=== PATIENT | male | born 1935 | race Caucasian/White ===

== ENCOUNTER 2020-09-22 06:16 | Outpatient (REF) | payer MEDICARE, SELFPAY ==
[2020-09-22 11:29] LABS: Hematocrit 42.8 % (42-52); Hemoglobin 14.1 g/dl (14.0-18.0); Mean Corpuscular HGB Conc 32.9 g/dl (31.0-36.0); Mean Corpuscular Hemoglobin 32.3 pg (27.0-33.0); Mean Corpuscular Volume 98.2 fL (80-98); Platelet Count 171 X10*3/uL (160-400); Red Blood Count 4.36 X10*6/uL (4.60-5.80); Red Cell Distribution Width 13.2 % (11.0-16.0); White Blood Count 5.6 X10*3/uL (4.8-10.8)
[2020-09-22 11:54] LABS: Alanine Aminotransferase 26 U/L (0-40); Albumin Level 4.4 g/dL (3.5-5.0); Alkaline Phosphatase 54 U/L (39-117); Anion Gap 15 (12-20); Aspartate Amino Transferase 34 U/L (5-37); Blood Urea Nitrogen 31 mg/dL (9-16); Calcium 9.2 mg/dL (8.4-10.2); Carbon Dioxide 26 mmol/L (22-29); Chloride 103 mmol/L (96-108); Cholesterol 160 mg/dL; Estimated Glomerular Filt Rate 49; Glucose Fasting 95 mg/dL (60-99); HDL Cholesterol 43 mg/dL; LDL Cholesterol Calculated 89 mg/dl; Potassium 4.6 mmol/l (3.3-5.1); Sodium 139 mmol/L (135-145); Total Protein 7.2 g/dL (6.5-8.0); Triglycerides 140 mg/dL
== END 2020-09-22 06:17 | disposition home or self-care (01) ==
LOC: HO.HMGCLDS 06:16
PROVIDERS: PCP Internal Medicine; Visit Provider Internal Medicine
DX: I13.0 Hypertensive heart and chronic kidney disease with heart failure and stage 1 through stage 4 chronic kidney disease, or unspecified chronic kidney disease (principal); N18.30 Chronic kidney disease, stage 3 unspecified; I50.9 Heart failure, unspecified
CPT/HCPCS: 36415; 80053; 80061; 85027

== ENCOUNTER 2022-01-26 07:45 | Outpatient (REF) | payer MEDICARE, SELFPAY ==
[2022-01-26 11:45] LABS: Hematocrit 43.1 % (42.0-52.0); Mean Corpuscular HGB Conc 32.5 g/dl (31.0-36.0); Mean Corpuscular Hemoglobin 31.7 pg (27.0-33.0); Mean Corpuscular Volume 97.7 fL (80.0-98.0); Platelet Count 190 X10*3/uL (160-400); Red Blood Count 4.41 X10*6/uL (4.60-5.80); Red Cell Distribution Width 12.8 % (11.0-16.0); White Blood Count 5.5 X10*3/uL (4.8-10.8)
[2022-01-26 11:56] LABS: Alanine Aminotransferase 28 U/L (0-40); Albumin Level 4.2 g/dL (3.5-5.0); Alkaline Phosphatase 48 U/L (39-117); Anion Gap 11 (12-20); Aspartate Amino Transferase 31 U/L (5-37); Bilirubin Total 0.7 mg/dL (0.0-1.0); Blood Urea Nitrogen 33 mg/dL (9-16); Calcium 9.7 mg/dL (8.4-10.2); Carbon Dioxide 28 mmol/L (22-29); Chloride 104 mmol/L (96-108); Cholesterol 152 mg/dL; Estimated Glomerular Filt Rate 43; Glucose Fasting 105 mg/dL (60-99); HDL Cholesterol 39 mg/dL; LDL Cholesterol Calculated 82 mg/dl; Potassium 4.8 mmol/L (3.3-5.1); Sodium 138 mmol/L (135-145); Triglycerides 158 mg/dL
== END 2022-01-26 07:46 | disposition home or self-care (01) ==
LOC: HO.HMGCLDS 07:45
PROVIDERS: Visit Provider Internal Medicine
DX: I13.0 Hypertensive heart and chronic kidney disease with heart failure and stage 1 through stage 4 chronic kidney disease, or unspecified chronic kidney disease (principal); N18.30 Chronic kidney disease, stage 3 unspecified; I50.9 Heart failure, unspecified; E78.5 Hyperlipidemia, unspecified; C61 Malignant neoplasm of prostate
CPT/HCPCS: 36415; 80053; 80061; 85027

== ENCOUNTER 2022-08-14 07:57 | Outpatient (REF) | payer MEDICARE, SELFPAY ==
--- NOTE | ~2022-08-14 | CT_ITS ---
EXAMINATION: CT ABDOMEN AND PELVIS WITH CONTRAST CLINICAL INFORMATION: Abdominal wall contusion COMPARISON: None TECHNIQUE: Multidetector volumetric images were obtained from the superior aspect of the liver through the pubic symphysis following administration 85 mL of Omnipaque 350 intravenous contrast. Sagittal and coronal reformatted images were obtained on the technologist's workstation. Oral contrast: Yes This CT examination was performed using dose optimization techniques as appropriate, variously including the following: *Automated exposure control *Adjustment of mA and/or kV according to patient size (this includes techniques or standardized protocols for targeted exams where dose is matched to indication/reason for exam; i.e. extremities or head) *Use of iterative reconstruction technique DLP: 323 mGy-cm FINDINGS: LUNG BASES: The visualized lung bases are clear. There is a large esophageal hernia. LIVER, GALLBLADDER, AND BILIARY TREE: The liver is normal in size, shape, and attenuation. Small subcentimeter low-attenuation liver lesions probably representing cysts. No biliary ductal dilatation is present. The gallbladder is normal in size. There are small gallstones in the gallbladder. PANCREAS: Unremarkable. SPLEEN: Unremarkable. ADRENAL GLANDS: Unremarkable. KIDNEYS AND URETERS: Multiple left renal cysts largest measuring 6 cm. There is a small subcentimeter cyst in the right kidney. No imaging follow-up. Kidneys are unremarkable. BLADDER: Not optimally distended. There is question of bladder wall thickening at the right base of the bladder. GASTROINTESTINAL TRACT: Severe diverticulosis of the colon. No evidence of diverticulitis. Small and large bowel otherwise normal. Appendix not seen. Large esophageal hernia. ABDOMINAL WALL: Small right inguinal hernia containing fat.. No fluid collection or contusion in the abdominal wall appreciated. There is stranding of the subcutaneous fat and asymmetric subcutaneous fluid over the right buttock. LYMPH NODES: Normal. VASCULAR: There is evidence of severe atherosclerotic disease. No aneurysm. PELVIC VISCERA: Prostate gland is not identified. There is abnormal soft tissue seen at the base of the bladder and in the right inferior pelvis/perineum axial image 70 series 3. This has small calcifications. Correlation with clinical history and PSA level is recommended. This abuts the anterior wall of the lower rectum and possible rectal mass should also be considered. OSSEOUS STRUCTURES: Scoliosis and degenerative changes of the spine and hips. CT/CT abdomen pelvis w IV con IMPRESSION: No abdominal wall fluid collection or contusion. Stranding of the subcutaneous fat and subcutaneous fluid over the right buttock questionable for contusion. Diverticulosis. No evidence of diverticulitis. Large esophageal hernia. Question bladder wall thickening of the right bladder base. Abnormal soft tissue in the right lower pelvis and perineum. Prostate gland is not identified. Correlation with PSA level is recommended. This abuts the anterior rectum and possible rectal mass should also be considered. Liver and bilateral renal cysts. Severe atherosclerotic disease. Findings communicated by the [place] work flow spool fixer. Fleischner guidelines were followed.
[2022-08-14 12:12] LABS: Hematocrit 37.9 % (42.0-52.0); Hemoglobin 12.4 g/dl (14.0-18.0); Mean Corpuscular HGB Conc 32.7 g/dl (31.0-36.0); Mean Corpuscular Hemoglobin 31.5 pg (27.0-33.0); Mean Corpuscular Volume 96.2 fL (80.0-98.0); Mean Platelet Volume 11.4 fL (9.4-12.4); Platelet Count 147 X10*3/uL (160-400); Red Blood Count 3.94 X10*6/uL (4.60-5.80); Red Cell Distribution Width 13.4 % (11.0-16.0); White Blood Count 4.7 X10*3/uL (4.8-10.8)
[2022-08-14 12:24] LABS: Anion Gap 13 (12-20); Blood Urea Nitrogen 30 mg/dL (9-16); Calcium 8.9 mg/dL (8.4-10.2); Carbon Dioxide 24 mmol/L (22-29); Chloride 107 mmol/L (96-108); Estimated Glomerular Filt Rate 49; Glucose Random 88 mg/dL (60-115); Sodium 139 mmol/L (135-145)
[2022-08-14] MEDS: iohexoL 350 MG/ML 100 ML INFUS..BTL IV (13:24)
== END 2022-08-14 07:58 | disposition home or self-care (01) ==
LOC: HO.CT 07:57
PROVIDERS: PCP Internal Medicine; Visit Provider Internal Medicine
DX: S30.1XXA Contusion of abdominal wall, initial encounter (principal)
CPT/HCPCS: 36415; 74177; 80048; 85027; Q9967

== ENCOUNTER 2023-07-04 09:22 | Outpatient (REF) | payer MEDICARE, SELFPAY ==
[2023-07-04 11:33] LABS: MANUAL DIFF FLAG NO
[2023-07-04 11:55] LABS: Basophils Percent Auto 0.3 % (0-2); Hematocrit 34.5 % (42.0-52.0); Hemoglobin 11.3 g/dl (14.0-18.0); Imm Gran Abs Auto 0.07 X10*3/uL (0.00-0.03); Imm Gran Pct Auto 1.8 % (0.0-0.4); Lymphocytes Absolute Auto 0.9 X10*3/uL (1.2-4.9); Lymphocytes Percent Auto 23.9 % (20-40); Mean Corpuscular HGB Conc 32.8 g/dl (31.0-36.0); Mean Corpuscular Hemoglobin 30.7 pg (27.0-33.0); Mean Corpuscular Volume 93.8 fL (80.0-98.0); Mean Platelet Volume 10.5 fL (9.4-12.4); Monocytes Absolute Auto 0.5 X10*3/uL (0.1-1.2); Monocytes Percent Auto 11.8 % (2-11); Neutrophils Absolute Auto 2.3 x10*3/uL (2.0-8.3); Neutrophils Percent Auto 61.2 % (45-73); Platelet Count 154 X10*3/uL (160-400); Red Blood Count 3.68 X10*6/uL (4.60-5.80); Red Cell Distribution Width 13.8 % (11.0-16.0); White Blood Count 3.8 X10*3/uL (4.8-10.8)
[2023-07-04 12:27] LABS: Alanine Aminotransferase 130 U/L (0-40); Albumin Level 3.5 g/dL (3.5-5.0); Alkaline Phosphatase 354 U/L (39-117); Anion Gap 12 (12-20); Aspartate Amino Transferase 191 U/L (5-37); Bilirubin Total 0.7 mg/dL (0.0-1.0); Blood Urea Nitrogen 25 mg/dL (9-16); Calcium 8.7 mg/dL (8.4-10.2); Carbon Dioxide 23 mmol/L (22-29); Chloride 106 mmol/L (96-108); Cholesterol 104 mg/dL; Estimated Glomerular Filt Rate 52; Glucose Random 104 mg/dL (60-115); HDL Cholesterol 35 mg/dL; LDL Cholesterol Calculated 56 mg/dl; Potassium 4.5 mmol/L (3.3-5.1); Sodium 136 mmol/L (135-145); Total Protein 6.3 g/dL (6.5-8.0); Triglycerides 68 mg/dL
[2023-07-04 12:33] LABS: TSH reflex Free T4 1.36 uIU/mL (0.32-4.0)
== END 2023-07-04 09:23 | disposition home or self-care (01) ==
LOC: HO.HMGCLDS 09:22
PROVIDERS: PCP Internal Medicine; Visit Provider Internal Medicine
DX: I13.0 Hypertensive heart and chronic kidney disease with heart failure and stage 1 through stage 4 chronic kidney disease, or unspecified chronic kidney disease (principal); N18.30 Chronic kidney disease, stage 3 unspecified; I50.9 Heart failure, unspecified; E78.5 Hyperlipidemia, unspecified
CPT/HCPCS: 36415; 80053; 80061; 84443; 85025

== ENCOUNTER 2023-07-08 08:29 | Outpatient (AMB) | payer MEDICARE, SELFPAY ==
--- NOTE | 2023-07-08 08:58 | MHC.PC.OV ---
Vital Signs 07/08/23 09:02 Height 5 ft 7 in Weight 131 lb BMI 20.5 BP 118/56 L Blood Pressure Location Lt brachial Position Sitting Pulse 71 Pulse Source Pulse Oximeter Pulse Oximetry (%) 98 Oxygen Delivery Method Room Air Intake Visit Reasons: 3 month f/u HTN Intake Note: Pt is here today for 3 months follow up visit. Pt states that he has no appetite. Allergies No Known Allergies Allergy (Verified 07/08/23 09:05) Medication List - Last Reconciled 07/08/23 by Prachi Altman MD alendronate 70 mg PO QWEEK allopurinol 200 mg (2 x 100 mg) PO DAILY cholecalciferol (vitamin D3) (Vitamin D3) 25 mcg PO DAILY ezetimibe 10 mg PO DAILY fish [id number]-vit C-vit E PO flu vacc [id number](65yr up)-PF mL IM metoprolol succinate ER 25 mg PO DAILY rosuvastatin 40 mg PO DAILY Tobacco use date assessed: 04/03/23 Dental Screening Dental Screen Date: 07/08/23 Did you have a dental visit in the last 12 months?: Yes Did you have a dental problem in the last 6 months where you did not have access to dental care?: No Was dental information given to patient?: Patient has dentist HPI 3 month f/u HTN HPI Details Patient presents for the follow-up on hypertension congestive heart failure metastatic prostate CA. patient lost 13 lb since the last visit. He reports decreased appetite but denies abdominal pain nausea vomiting. He has a constipation intermittently but denies hematochezia melena. Patient has been treated by Oncology and Urology for metastatic prostate CA with a rising PSA level. [facility] Medical History CAD (coronary artery disease) CHF (congestive heart failure) CKD (chronic kidney disease) stage 3, GFR 30-59 ml/min Gout HTN (hypertension) Hyperlipidemia Osteoporosis Prostate cancer Family History Father No problems noted. Mother No problems noted. Social History Housing: House Alcohol intake: current Alcohol intake frequency: holidays/special occasions only Patient Tobacco Use Status: Never used Tobacco e-Cigarette/Vaping Use: Never Used Current occupational status: retired Cognitive needs: No Hearing needs: No Vision needs: Yes Questionnaire Thrive Questionnaire Date Thrive assessed: 04/03/23 LOUISE-7 AMB Questionnaire LOUISE-7 Date LOUISE - 7 assessed: 04/03/23 Source: Developed by Drs. Gopal Martines, Mary Jane Sawant, Derian Hill and colleagues, with an educational juanjo from [employer] Review of Systems Const All systems reviewed & are unremarkable except as noted in HPI and below Reports no additional complaints Eyes Reports no additional complaints ENT Reports no additional complaints Card Reports no additional complaints Resp Reports no additional complaints GI Reports no additional complaints Reports no additional complaints Physical exam (Primary Care) Vital Signs: Last Vital Signs Pulse 71 07/08/23 09:02 BP 118/56 L 07/08/23 09:02 Pulse Ox 98 07/08/23 09:02 Oxygen Delivery Method Room Air 07/08/23 09:02 BMI result Body Mass Index 20.5 Tobacco/Smoking Status: Tobacco use Status Tobacco use date assessed 04/03/23 07/08/23 08:58 Patient Tobacco Use Status Never used Tobacco 07/08/23 08:58 e-Cigarette/Vaping Use Never Used 07/08/23 08:58 Thrive Assessment: Date of Thrive Assessment Date Thrive assessed 04/03/23 07/08/23 08:58 Const General: no acute distress HENMT Face and sinus: Yes normal facial exam Neck Neck: Yes supple Resp Effort & Inspection: normal respiratory effort Auscultation: clear to auscultation bilaterally Cardio Rhythm: regular rhythm Heart sounds: S1 normal heart sound present and S2 normal heart sound present GI Inspection: Yes normal to inspection Palpation (GI): Soft to palpation and nontender Percussion: Yes normal to percussion Auscultation: normal bowel sounds Extrem Other: 2+ pitting edema bilaterally Assessment and Plan Assessment & Plan (1) 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 Curry 2004/ Dr. Peacock Code(s): C61 - Malignant neoplasm of prostate Plan: Follow-up with urology and oncology (2) CKD (chronic kidney disease) stage 3, GFR 30-59 ml/min: Code(s): N18.30 - Chronic kidney disease, stage 3 unspecified (3) Anemia: Code(s): D64.9 - Anemia, unspecified Plan: Check iron studies and B12. Referral to GI if patient has iron deficiency discussed with the patient and his and he is not interested in aggressive pursuing of iron deficiency anemia. Patient is interested in trying iron supplement and recheck blood count in 6 weeks (4) Elevated LFTs: Code(s): R79.89 - Other specified abnormal findings of blood chemistry Plan: CT of the abdomen pelvis in November showed questionable small lesions on the liver abdominal ultrasound will be obtained to evaluate for any liver lesions question metastatic disease from prostate CA Orders: Orders IRON PROFILE Today D64.9 - Anemia, unspecified Vitamin B12 Today D64.9 - Anemia, unspecified US abdomen limited Today C61 - Malignant neoplasm of prostate, D64.9 - Anemia, unspecified, R79.89 - Other specified abnormal findings of blood chemistry Medications: Changed From metoprolol succinate ER 50 mg PO BID 180 tabs 3RF To metoprolol succinate ER 25 mg PO DAILY Coding Level of Care Code Est Pt Level 4 (17598) Diagnoses Prostate cancer C61 CKD (chronic kidney disease) stage 3, GFR 30-59 ml/min N18.30 Anemia D64.9 Elevated LFTs R79.89
[2023-07-08 09:02] VITALS: BP 118/56; PULSE 71; O2SAT 98; BMI 20.5
== END 2023-07-08 10:54 | disposition home or self-care (01) ==
PROVIDERS: Visit Provider Internal Medicine
DX: C61 Malignant neoplasm of prostate (principal); N18.30 Chronic kidney disease, stage 3 unspecified; D64.9 Anemia, unspecified; R79.89 Other specified abnormal findings of blood chemistry
CPT/HCPCS: 99214

== ENCOUNTER 2023-07-08 09:45 | Outpatient (REF) | payer MEDICARE, SELFPAY ==
[2023-07-08 13:12] LABS: Iron 97 mcg/dL (45-160); Percent Iron Saturation 43 % (15-50); Total Iron Binding Capacity 223 mcg/dL (228-428); Unsaturated Iron Binding 126 ug/dL; Uric Acid 2.5 mg/dL (3.4-7.0)
[2023-07-08 13:23] LABS: Vitamin B12 1104 pg/mL (200-900)
== END 2023-07-08 09:46 | disposition home or self-care (01) ==
LOC: HO.HMGCLDS 09:45
PROVIDERS: PCP Internal Medicine; Visit Provider Internal Medicine
DX: I12.9 Hypertensive chronic kidney disease with stage 1 through stage 4 chronic kidney disease, or unspecified chronic kidney disease (principal); N18.30 Chronic kidney disease, stage 3 unspecified; D64.9 Anemia, unspecified; E78.5 Hyperlipidemia, unspecified
CPT/HCPCS: 36415; 82607; 83540; 84550

== ENCOUNTER 2023-07-22 08:49 | Outpatient (REF) | payer MEDICARE, SELFPAY ==
--- NOTE | ~2023-07-22 | US_ITS ---
EXAMINATION: US ABDOMEN LIMITED CLINICAL INFORMATION: Malignant neoplasm of prostate, elevated LFTs. COMPARISON: CT abdomen and pelvis with contrast 08/14/2022. TECHNIQUE: Real-time imaging of the right upper quadrant abdominal viscera. Technically difficult study secondary to body habitus. FINDINGS: PANCREAS: Limited visualization of pancreatic tail and head. Imaged portion of pancreatic body is unremarkable. LIVER: Unremarkable. GALLBLADDER: Multiple tiny stones versus sludge within the gallbladder. No gallbladder wall thickening. Gallbladder is distended. COMMON BILE DUCT: Normal in caliber measuring 0.3 cm in diameter. Limited visualization. RIGHT KIDNEY: No hydronephrosis. No renal calculi. Renal cortical thickness is normal. Limited visualization. The kidney measures 10.0 cm in maximum dimension. FREE FLUID: None. US/US abdomen limited IMPRESSION: Multiple tiny stones versus sludge within the gallbladder. No gallbladder wall thickening. Gallbladder is distended.
== END 2023-07-22 08:50 | disposition home or self-care (01) ==
LOC: HO.HMGCX 08:49
PROVIDERS: PCP Internal Medicine; Visit Provider Internal Medicine
DX: C61 Malignant neoplasm of prostate (principal); D64.9 Anemia, unspecified; R79.89 Other specified abnormal findings of blood chemistry
CPT/HCPCS: 76705

== ENCOUNTER 2023-09-18 14:25 | Outpatient (REF) | payer MEDICARE, SELFPAY ==
[2023-09-18 16:13] LABS: Alanine Aminotransferase 36 U/L (0-40); Albumin Level 3.6 g/dL (3.5-5.0); Alkaline Phosphatase 569 U/L (39-117); Aspartate Amino Transferase 76 U/L (5-37); Bilirubin Direct 0.3 mg/dL (0.0-0.5); Bilirubin Total 0.5 mg/dL (0.0-1.0); Gamma Glutamyl Transpeptidase 59 U/L (11-51)
[2023-09-19 04:29] LABS: HBS Num1 0.22 mIU/mL (0-7.99); HBc Num1 0.16 S/CO (0.00-0.79); HBsAGNum1 0.34 S/CO (0.00-0.99); Hepatitis B Core Antibody Nonreactive (Nonreactive); Hepatitis B Surface Antigen Negative (Negative); ~HepC Num1 0.11 S/CO (0.00-0.79); ~Hepatitis B Surface Antibody NONREACTIVE (Nonreactive); ~Hepatitis C Antibody Nonreactive (Nonreactive)
[2023-09-19 04:47] LABS: Hepatitis A Antibody IgG REACTIVE (Nonreactive); ~Hepatitis A Antibody IgG 10.26 S/CO (0.00-0.99)
[2023-09-27 21:08] LABS: Alk.Phos Iso. Macrohepatic 0 % (<=0); Alk.Phos Isoenzymes Bone 77 % (28-66); Alk.Phos Isoenzymes Intest 0 % (1-24); Alk.Phos Isoenzymes Liver 23 % (25-69); Alk.Phos Isoenzymes Placental 0 % (<=0); Alk.Phos Isoenzymes Total 530 U/L (35-144)
== END 2023-09-18 14:26 | disposition home or self-care (01) ==
LOC: HO.LAB 14:25
PROVIDERS: PCP Internal Medicine; Visit Provider Internal Medicine
DX: R79.89 Other specified abnormal findings of blood chemistry (principal); R93.5 Abnormal findings on diagnostic imaging of other abdominal regions, including retroperitoneum; R63.0 Anorexia; C61 Malignant neoplasm of prostate; Z11.59 Encounter for screening for other viral diseases; Z72.89 Other problems related to lifestyle
CPT/HCPCS: 36415; 80076; 82977; 84080; 86704; 86706; 86708; 86803; 87340; 99202

== ENCOUNTER 2023-09-18 14:25 | Outpatient (AMB) | payer MEDICARE, SELFPAY ==
--- NOTE | 2023-09-18 14:29 | MHC.OFFVIS ---
Intake Vital Signs 09/18/23 14:33 Height 5 ft 4 in Weight 121 lb 4.068 oz BMI 20.8 BP 113/57 L Blood Pressure Location Lt brachial Position Sitting Pulse 68 Intake Visit Reasons: other abdominal regions, including retroperitoneum Intake Note: Josep presents in the office as a new patient. CC: Dr Altman had an US of chest done and they seen sludge and stones in the gall bladder so he was sent here. Does not hae an appetite and not sure what that is from. He has lost 20 lbs since March. Allergies No Known Allergies Allergy (Verified 09/24/23 10:16) HPI HPI Comments History of Present Illness Details 88 y.o M with metastatic prostate ca who is here for loss of appetite and elevated LFTs. Pt reports he had progressive decline in his appetite and energy levels since March of this year. Reports almost 20 lbs weight loss since then. No abd pain, N,V. Only GI issue is intermittent constipation x 1 month which resolves with PRN castor oil. No blood in stool. Does take NSAIDs, uses them at least 4-5 times for generalised aches and pains. Pt's previous colo was in 2007 - Dr Verduzco. No polyps. Since pt was 74, no repeat recommended. Initial work up included LFTs which were noted to be up x5UNL for transaminases and x2 UNL for ALP with normal bili. This prompted an US Abd which showed gallstones with GB distention but no wall thickening or pericholecystic fluid. In terms of prostate ca, metastatic. Follows with Dr Charline Crespo at [facility]. 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 Has tried multiple therapies most recently Xtandi which was stopped in January 2022 due to disease progression. Currently only on leuprolide treatment Q 6 month (Dr. Peacock). At that time it was discussed that may need to consider hospice if patient has functional decline. Next appointment with Onc is coming up in a week. [facility] Medical History (Updated 09/18/23 @ 15:14 by Malina Avilez MD) Hyperlipidemia Osteoporosis CAD (coronary artery disease) Gout Prostate cancer CKD (chronic kidney disease) stage 3, GFR 30-59 ml/min HTN (hypertension) CHF (congestive heart failure) Surgical History (Updated 09/18/23 @ 14:33 by DELFINO Cason) Hx of colonoscopy Family History Father No problems noted. Mother No problems noted. Social History Housing: House Alcohol intake: current Alcohol intake frequency: holidays/special occasions only Patient Tobacco Use Status: Never used Tobacco e-Cigarette/Vaping Use: Never Used Current occupational status: retired Cognitive needs: No Hearing needs: No Vision needs: Yes Review of Systems Const All systems reviewed & are unremarkable except as noted in HPI and below Physical Exam Vital Signs: Last Vital Signs Pulse 68 09/18/23 14:33 BP 113/57 L 09/18/23 14:33 BMI result Body Mass Index 20.8 Gen appear: Elderly frail pale appearing NAD HEENT: nonicteric Chest: CTA Abd: soft, nontender, nondistended Ext: no peripheral edema Neuro: A/Ox3, hard of hearing, uses a cane to walk Psych: interacting appropriately Assessment & Plan Assessment & Plan (1) Elevated LFTs: Code(s): R79.89 - Other specified abnormal findings of blood chemistry (2) Abnormal abdominal ultrasound: Code(s): R93.5 - Abnormal findings on diagnostic imaging of other abdominal regions, including retroperitoneum (3) Prostate cancer: Code(s): C61 - Malignant neoplasm of prostate Plan 1. Loss of appetite, unintentional weight loss: Reviewed with the pt that given underlying advanced tx resistant prostate ca, could very well be sequela of progression of disease and cachexia and anorexia are common signs of advanced malignancy. Other ddx include PUD/gastritis/duodenitis sherri given frequent nsaid use, pill esophagitis sherri given large paraesophageal hernia and alendronate use, symptomatic GB disease. Plan: - Discussed that due to underlying comorbidities, frailty and advanced age at high risk for periprocedural complications and therefore will favor conservative management at this time. - Empiric tx with omeprazole 20 BID x 4 weeks and then once daily x 4 weeks for possible PUD/gastritis/esophagitis - Avoid/minimize NSAID use. - Evaluation of prostate ca progression as per his outpatient Onc. Will obtain records after his visit next week. 2. Elevated LFTs: Again could be due to GB disease, vs DILI vs metastatic disease although no lesions visualised on US. Plan: - Recheck LFTs to ascertain if elevation was transient - Fractionate ALP sherri as known bone mets - Check hep serologies Follow up in 4 weeks with any provider Orders: Orders Liver Panel 09/18/23 R7 - Other specified abnormal findings of blood chemistry Hepatitis A IgG 09/18/23 - Other specified abnormal findings of blood chemistry Hepatitis B Surface Antibody 09/18/23 - Other specified abnormal findings of blood chemistry Hepatitis B Surface Antigen 09/18/23 - Other specified abnormal findings of blood chemistry Gamma Glutamyl Transpeptidase 09/18/23 R7 - Other specified abnormal findings of blood chemistry Hepatitis B Core Antibody 09/18/23 R7. - Other specified abnormal findings of blood chemistry Hepatitis C Antibody 09/18/23 - Other specified abnormal findings of blood chemistry Alkaline Phosphatase Isoenzyme 09/18/23 R7. - Other specified abnormal findings of blood chemistry Medications: New omeprazole 20 mg PO BID 60 caps 1RF 30 days Coding Level of Care Code New Pt Level 4 (05052) Diagnoses Elevated LFTs . Abnormal abdominal ultrasound R93.5 Prostate cancer C61
[2023-09-18 14:33] VITALS: BP 113/57; PULSE 68; BMI 20.8
== END 2023-09-18 15:06 | disposition home or self-care (01) ==
PROVIDERS: PCP Internal Medicine; Visit Provider Nurse Practitioner
DX: R79.89 Other specified abnormal findings of blood chemistry (principal); R93.5 Abnormal findings on diagnostic imaging of other abdominal regions, including retroperitoneum; C61 Malignant neoplasm of prostate
CPT/HCPCS: 99204

== ENCOUNTER 2023-09-24 10:06 | Outpatient (AMB) | payer MEDICARE, SELFPAY ==
[2023-09-24 10:08] VITALS: BP 110/56; PULSE 82; O2SAT 97; BMI 21.3
--- NOTE | 2023-09-24 10:08 | MHC.PC.OV ---
Vital Signs 09/24/23 10:08 Height 5 ft 4 in Weight 124 lb BMI 21.3 BP 110/56 L Blood Pressure Location Rt brachial Position Sitting Pulse 82 Pulse Source Pulse Oximeter Pulse Oximetry (%) 97 Oxygen Delivery Method Room Air Intake Visit Reasons: 2m f/u Intake Note: Pt is here today for 2 months follow up visit. Allergies No Known Allergies Allergy (Verified 09/24/23 10:16) Medication List - Last Reconciled 09/24/23 by Prachi Altman MD alendronate 70 mg PO QWEEK allopurinol 200 mg (2 x 100 mg) PO DAILY cholecalciferol (vitamin D3) (Vitamin D3) 25 mcg PO DAILY ezetimibe 10 mg PO DAILY fish oqs-ewqhj-0-vit C-vit E PO metoprolol succinate ER 25 mg (1/2 x 50 mg) PO DAILY omeprazole 20 mg PO BID rosuvastatin 40 mg PO DAILY Tobacco use date assessed: 09/24/23 Fall risk assessment: No Falls in past year Last assessed Fall Risk: 09/24/23 Dental Screening Dental Screen Date: 09/24/23 Did you have a dental visit in the last 12 months?: Yes Did you have a dental problem in the last 6 months where you did not have access to dental care?: No Was dental information given to patient?: Patient has dentist HPI 2m f/u HPI Details Patient presents for follow up. He is not a candidate for continuing chemotherapy for metastatic prostate CA and follows up with urologist. Patient denies any significant pain but reports poor appetite.He has been eating smaller portions but has been able to maintain his weight. He was seen by GI and started on omeprazole without significant change in patient's appetite. He denies heartburn, abdominal pain hematochezia melena. [facility] Medical History (Updated 09/18/23 @ 15:14 by Malina Avilez MD) Hyperlipidemia Osteoporosis CAD (coronary artery disease) Gout Prostate cancer CKD (chronic kidney disease) stage 3, GFR 30-59 ml/min HTN (hypertension) CHF (congestive heart failure) Surgical History (Updated 09/18/23 @ 14:33 by DELFINO Cason) Hx of colonoscopy Family History Father No problems noted. Mother No problems noted. Social History Housing: House Alcohol intake: current Alcohol intake frequency: holidays/special occasions only Patient Tobacco Use Status: Never used Tobacco e-Cigarette/Vaping Use: Never Used Current occupational status: retired Cognitive needs: No Hearing needs: No Vision needs: Yes Questionnaire Thrive Questionnaire Date Thrive assessed: 04/03/23 LOUISE-7 AMB Questionnaire LOUISE-7 Date LOUISE - 7 assessed: 04/03/23 Source: Developed by Drs. Gopal Martines, Mary Jane Sawant, Derian Hill and colleagues, with an educational juanjo from [employer]. Review of Systems Const All systems reviewed & are unremarkable except as noted in HPI and below Reports no additional complaints Eyes Reports no additional complaints ENT Reports no additional complaints Card Reports no additional complaints Resp Reports no additional complaints GI Reports no additional complaints Reports no additional complaints Physical exam (Primary Care) Vital Signs: Last Vital Signs Pulse 82 09/24/23 10:08 BP 110/56 L 09/24/23 10:08 Pulse Ox 97 09/24/23 10:08 Oxygen Delivery Method Room Air 09/24/23 10:08 BMI result Body Mass Index 21.3 Tobacco/Smoking Status: Tobacco use Status Tobacco use date assessed 09/24/23 09/24/23 10:18 Patient Tobacco Use Status Never used Tobacco 09/24/23 10:08 e-Cigarette/Vaping Use Never Used 09/24/23 10:08 Thrive Assessment: Date of Thrive Assessment Date Thrive assessed 04/03/23 09/24/23 10:08 Const General: no acute distress HENMT Mouth: Normal oral and palatal mucosa present Resp Effort & Inspection: normal respiratory effort Auscultation: clear to auscultation bilaterally Cardio Rhythm: regular rhythm Heart sounds: S1 normal heart sound present and S2 normal heart sound present GI Inspection: Yes normal to inspection Palpation (GI): Soft to palpation Auscultation: normal bowel sounds Assessment and Plan Assessment & Plan (1) Prostate cancer: Code(s): C61 - Malignant neoplasm of prostate Plan: Follows up with Urology and Oncology. (2) CKD (chronic kidney disease) stage 3, GFR 30-59 ml/min: Code(s): N18.30 - Chronic kidney disease, stage 3 unspecified Plan: Avoid NSAIDs and monitor renal function (3) CHF (congestive heart failure): Code(s): I50.9 - Heart failure, unspecified Plan: Continue metoprolol (4) Hyperlipidemia: Code(s): E78.5 - Hyperlipidemia, unspecified Plan: Patient will discontinue Crestor and Zetia because there is no benefit for taking those medications because of advanced metastatic prostate CA Medications: Discontinued rosuvastatin Discontinued Reason: Doctor's Order 40 mg PO DAILY 90 tabs 3RF Coding Level of Care Code Est Pt Level 4 (76630) Diagnoses Prostate cancer C61 CKD (chronic kidney disease) stage 3, GFR 30-59 ml/min N18.30 CHF (congestive heart failure) I50.9 Hyperlipidemia E78.5
== END 2023-09-24 15:07 | disposition home or self-care (01) ==
PROVIDERS: PCP Internal Medicine; Visit Provider Internal Medicine
DX: C61 Malignant neoplasm of prostate (principal); N18.30 Chronic kidney disease, stage 3 unspecified; I50.9 Heart failure, unspecified; E78.5 Hyperlipidemia, unspecified
CPT/HCPCS: 99214

== ENCOUNTER 2023-12-30 12:20 | Outpatient (AMB) | payer MEDICARE, SELFPAY ==
[2023-12-30 12:32] VITALS: BP 110/56; PULSE 52; O2SAT 100; BMI 20.6
--- NOTE | 2023-12-30 12:32 | A.OFFPC_ITS ---
Vital Signs 12/30/23 12:32 Height 5 ft 4 in Weight 120 lb BMI 20.6 BP 110/56 L Blood Pressure Location Lt brachial Position Sitting Pulse 52 Pulse Source Pulse Oximeter Pulse Oximetry (%) 100 Oxygen Delivery Method Room Air Intake Visit Reasons: 3 month fu Intake Note: Pt is here today for 4 months follow up visit. Allergies No Known Allergies Allergy (Verified 12/30/23 12:43) Tobacco use date assessed: 12/30/23 Fall risk assessment: 2 + Falls in past year Last assessed Fall Risk: 12/30/23 Dental Screening Dental Screen Date: 12/30/23 Did you have a dental visit in the last 12 months?: Yes Did you have a dental problem in the last 6 months where you did not have access to dental care?: No Was dental information given to patient?: Patient has dentist HPI 3 month fu HPI Details Patient presents for the follow-up. He complains of decreased hearing in both ears and a feeling of blocked ears. Patient follows up with Oncology and Neurology for end-stage metastatic prostate CA. [facility] Medical History Hyperlipidemia Osteoporosis CAD (coronary artery disease) Gout Prostate cancer CKD (chronic kidney disease) stage 3, GFR 30-59 ml/min HTN (hypertension) CHF (congestive heart failure) Surgical History Hx of colonoscopy Family History Father No problems noted. Mother No problems noted. Social History Housing: House Alcohol intake: current Alcohol intake frequency: holidays/special occasions only Patient Tobacco Use Status: Never used Tobacco e-Cigarette/Vaping Use: Never Used Current occupational status: retired Cognitive needs: No Hearing needs: No Vision needs: Yes Questionnaire PHQ-9 Over the last 2 weeks, how often have you been bothered by any of the following problems? 1. Little interest or pleasure in doing things: not at all 2. Feeling down, depressed, or hopeless: not at all 4. Feeling tired or having little energy: several days 5. Poor appetite or overeating: not at all 6. Feeling bad about yourself - or that you are a failure or have let yourself or your family down: not at all 7. Trouble concentrating on things, such as reading the newspaper or watching television: not at all 8. Moving or speaking so slowly that other people could have noticed. Or the opposite - being so fidgety or restless that you have been moving around a lot more than usual: not at all 9. Thoughts that you would be better off or of hurting yourself in some way: not at all Depression Screening Interpretation: Negative Depression Screening Done: Yes Source: Developed by Drs. Gopal Martines, Mary Jane Sawant, Derian Hill and colleagues, with an educational juanjo from [employer]. Thrive Questionnaire Date Thrive assessed: 12/30/23 I am a: Patient What is your living situation today?: I have a steady place to live Within the past 12 months, did the food you bought not last and you didn't have the money to get more?: Never true Within the past 12 months, did you worry whether your food would run out before you got money to buy more?: Never true Do you have trouble paying for medicines?: No Do you have trouble getting transportation to medical appointments?: No Do you have trouble paying your heating and electricity bill?: No Do you have trouble taking care of your child, family member or friend?: No Do you have trouble with day-to-day activities such as bathing, preparing meals, shopping, managing finances, etc.?: No Are you currently unemployed and looking for a job?: No Are you interested in more education?: No Please select the resources that you would like help with: None Currently or been in a relationship where the following occur: no concerns reported THRIVE Score: 0 AUDIT C Alcohol Use Questionnaire (AUDIT-C) 1. How often do you have a drink containing alcohol?: Never 3. How often do you have six or more drinks on one occasion?: Never Total Score: 0 LOUISE-7 AMB Questionnaire LOUISE-7 Date LOUISE - 7 assessed: 12/30/23 Feeling nervous, anxious, or on edge: 0 = Not at all Not being able to stop or control worryin = Not at all Worrying too much about different things: 0 = Not at all Trouble relaxin = Not at all Being so restless that it is hard to sit still: 0 = Not at all Becoming easily annoyed or irritable: 0 = Not at all Feeling afraid as if something awful might happen: 0 = Not at all Total LOUISE-7 score (0-4 normal; 5-9 mild; 10-14 moderate; 15-21 severe): 0 Source: Developed by Drs. Gopal Martines, Mary Jane Sawant, Derian Hill and colleagues, with an educational juanjo from [employer]. Review of Systems Const All systems reviewed & are unremarkable except as noted in HPI and below Reports no additional complaints Eyes Reports no additional complaints ENT Reports no additional complaints Card Reports no additional complaints Resp Reports no additional complaints GI Reports no additional complaints Reports no additional complaints Physical exam (Primary Care) Vital Signs: Last Vital Signs Pulse 52 12/30/23 12:32 BP 110/56 L 12/30/23 12:32 Pulse Ox 100 12/30/23 12:32 Oxygen Delivery Method Room Air 12/30/23 12:32 BMI result Body Mass Index 20.6 Tobacco/Smoking Status: Tobacco use Status Tobacco use date assessed 12/30/23 12/30/23 12:49 Patient Tobacco Use Status Never used Tobacco 12/30/23 12:49 e-Cigarette/Vaping Use Never Used 12/30/23 12:34 Depression Screening Interpretation: Negative Thrive Assessment: Date of Thrive Assessment Date Thrive assessed 12/30/23 12/30/23 12:50 Currently or been in a relationship where the following occur: no concerns reported Const General: no acute distress HENMT Head: Yes normal to inspection Ears: hearing grossly normal bilaterally General nose exam: Normal external nose present Eyes General: appearance normal, both eyes and all related structures Resp Effort & Inspection: normal respiratory effort Auscultation: clear to auscultation bilaterally Cardio Rhythm: regular rhythm Heart sounds: S1 normal heart sound present and S2 normal heart sound present GI Inspection: Yes normal to inspection Palpation (GI): Soft to palpation Percussion: Yes normal to percussion Assessment and Plan Assessment & Plan (1) Prostate cancer: Comment: Metastatic follows-up with oncology and urology Code(s): C61 - Malignant neoplasm of prostate (2) CKD (chronic kidney disease) stage 3, GFR 30-59 ml/min: Code(s): N18.30 - Chronic kidney disease, stage 3 unspecified Plan: Avoid NSAIDs monitor renal function, Coding Level of Care Code Est Pt Level 3 (06654) Diagnoses Prostate cancer C61 CKD (chronic kidney disease) stage 3, GFR 30-59 ml/min N18.30
== END 2023-12-30 14:09 | disposition home or self-care (01) ==
PROVIDERS: PCP Internal Medicine; Visit Provider Internal Medicine
DX: C61 Malignant neoplasm of prostate (principal); N18.30 Chronic kidney disease, stage 3 unspecified
CPT/HCPCS: 99213

== ENCOUNTER 2024-01-10 11:54 | Inpatient (IN) | payer MEDICARE, SELFPAY ==
[2024-01-10] VITALS (10 sets, daily range): BP systolic 110–156; BP diastolic 53–70; PULSE 79–89; RESP 16–19; TEMP 36.1–37.3; O2SAT 87–98; BMI 21.1; BMI 20.8
--- NOTE | ~2024-01-10 | XR_ITS ---
EXAMINATION: XR CHEST CLINICAL INFORMATION: Shortness of breath COMPARISON: None available. TECHNIQUE: Frontal view of the chest was obtained. FINDINGS: The cardiac silhouette is slightly enlarged. There are post-CABG changes. Hilar and mediastinal contours are otherwise unremarkable. Loss of the left hemidiaphragm questionable for left lower lobe atelectasis/consolidation and/or small left pleural effusion. Small to moderate right pleural effusion that may be loculated. Difficult to exclude airspace disease or atelectasis at the right lung base and pulmonary nodules. No pneumothorax. Sclerotic disease of the bones. No fracture seen. Median sternotomy wires. XR/XR chest 1V IMPRESSION: Diffuse sclerotic disease of the bones. No fracture seen. Small to moderate right pleural effusion and bibasilar atelectasis/consolidation.
--- NOTE | ~2024-01-10 | CT_ITS ---
EXAMINATION: CT LUMBAR SPINE WITHOUT CONTRAST CLINICAL INFORMATION: History of prostate carcinoma. COMPARISON: CT abdomen and pelvis 08/14/2022. TECHNIQUE: Needleworker images were obtained. CT imaging of the lumbar spine was performed without contrast. Data was reformatted into multiplanar images at the acquisition workstation. This CT examination was performed using dose optimization techniques as appropriate, variously including the following: *Automated exposure control *Adjustment of mA and/or kV according to patient size (this includes techniques or standardized protocols for targeted exams where dose is matched to indication/reason for exam; i.e. extremities or head) *Use of iterative reconstruction technique DLP; 390 mGy-cm FINDINGS: There are mixed sclerotic and lucent changes visualized within all vertebral segments within the [id number] of this examination consistent with widespread osseous metastatic disease in a patient with a clinical history of prostate carcinoma. There is a chronic compression deformity of the L1 vertebral body with impaction of the upper endplate resulting in approximately 25% vertebral height loss anteriorly. No overt retropulsion of posterior cortex at this level. There is spinal scoliosis with a leftward convex curvature centered at L4. Slight right lateral subluxation of L2 on L3 and L3 on L4. Left lateral subluxation of L4 on L5. There is loss of intervertebral disc height with associated sclerotic degenerative endplate changes and hypertrophic disc osteophyte spurring at multiple levels within the lumbar spine. Canal patency is not well assessed on this examination due to inherent limitations of CT without intrathecal contrast. Disc osteophyte spurring in conjunction with facet degenerative change causes mild to moderate neuroforaminal encroachment at multiple levels. Limited visualization of the retroperitoneal anatomy reveals a hydropic gallbladder with the final gland measuring up to 5 cm. Heavily calcified atherosclerotic plaque involves the abdominal aorta and iliac vessels. Layering pleural effusions are partially visualized within the zwveq-pi-[id number] of this examination and there is a slight hiatal hernia. CT/CT lumbar spine wo IV con IMPRESSION: There is evidence of widespread osseous metastatic disease in a patient with a clinical history of prostate carcinoma. There is a chronic compression deformity of the L1 vertebral body with impaction of the upper endplate resulting in approximately 25% vertebral height loss anteriorly. No overt retropulsion of posterior cortex at this level. Canal patency is not well assessed on this examination due to inherent limitations of CT without intrathecal contrast. Disc osteophyte spurring in conjunction with facet degenerative change causes mild to moderate neuroforaminal encroachment at multiple levels.
--- NOTE | ~2024-01-10 | CT_ITS ---
EXAMINATION: CT PELVIS WITHOUT CONTRAST CLINICAL INFORMATION: History of prostate carcinoma, now complains of pain in the right iliac crest COMPARISON: CT scan of abdomen and pelvis on 08/14/2022 TECHNIQUE: Helical scanning was performed with submillimeter collimation through the pelvis. Sagittal and coronal multiplanar 2-D reconstructions were obtained. This CT examination was performed using dose optimization techniques as appropriate, variously including the following: *Automated exposure control *Adjustment of mA and/or kV according to patient size (this includes techniques or standardized protocols for targeted exams where dose is matched to indication/reason for exam; i.e. extremities or head) *Use of iterative reconstruction technique DLP: 173.29 mGy-cm FINDINGS: URINARY BLADDER: Urinary bladder fills normally with urine. No calcified stones could be seen in the bladder. BOWELS: Multiple diverticula are seen in the descending and sigmoid colon without inflammatory changes. Ascending and right transverse colon are mildly distended with feces. Appendix cannot be identified. GENITAL ORGANS: Seminal vesicles and prostate gland are not well visualized. LYMPH NODES: No abnormally enlarged iliac or inguinal lymph nodes are seen. PERITONEUM: No inflammatory changes, ascites or free peritoneal air are found in the pelvis. BONES: No fracture or dislocation. There has been interval development of extensive predominantly sclerotic metastatic tumor infiltration mixed with radiolucent bones producing a moth-eaten pattern in the visualized lumbosacral spine, diffusely in bilateral bony pelvis and proximal femoral shafts. CT/CT pelvis wo IV con IMPRESSION: 1. No acute pelvic fracture or dislocation seen. 2. There has been interval development of extensive sclerotic metastatic tumor infiltration in the visualized lumbosacral spine, bilateral bony pelvis and proximal femoral shafts. 3. Unchanged Sigmoid and descending colon diverticulosis without diverticulitis.
--- NOTE | 2024-01-10 12:13 | ECG_ITS ---
Test Reason : CKD Blood Pressure : / mmHG Vent. Rate : 077 BPM Atrial Rate : 077 BPM P-R Int : 174 ms QRS Dur : 122 ms QT Int : 422 ms P-R-T Axes : 028 -49 021 degrees QTc Int : 477 ms Sinus rhythm with occasional Premature ventricular complexes Left axis deviation Right bundle branch block Septal infarct (cited on or before 09-OCT-2002) Abnormal ECG When compared with ECG of 19-JAN-2014 15:42, Premature ventricular complexes are now Present Questionable change in initial forces of Septal leads Nonspecific T wave abnormality now evident in Anterior leads Referred By: Rena Redmond Electronically Signed By:Gael Burch
--- NOTE | 2024-01-10 12:27 | ED_ITS ---
HPI - Back Pain/Injury General Chief Complaint: Back Pain/Injury Stated Complaint: BACK PAIN PROSTATE CANCER Time Seen by Provider: 01/10/24 11:56 Source: patient Mode of arrival: EMS History of Present Illness HPI Narrative: 88-year-old male with complaints of right iliac/back pain, denies any recent falls, denies any fevers/chills/nausea/vomiting/abdominal pain and states that the pain is been occurring for the past 2 days and states that he has also had increased difficulty walking and has history of prostate cancer. Related Data Home Medications Medication Instructions Recorded Confirmed cholecalciferol (vitamin D3) 25 25 mcg PO DAILY 09/26/20 09/24/23 mcg (1,000 unit) capsule (Vitamin D3) fish vus-ppqek-3-vit C-vit E PO 09/26/20 09/24/23 Allergies Allergy/AdvReac Type Severity Reaction Status Date / Time No Known Allergies Allergy Verified 01/10/24 12:17 Review of Systems 2 Review of Systems: Pertinent positives and negatives as stated in HPI PMFSH Past Medical History Source: nursing notes reviewed Medical History Hyperlipidemia Osteoporosis CAD (coronary artery disease) Gout Prostate cancer CKD (chronic kidney disease) stage 3, GFR 30-59 ml/min HTN (hypertension) CHF (congestive heart failure) Surgical History Hx of colonoscopy Family History Family History Father No problems noted. Mother No problems noted. Social History Social History Housing: House Alcohol intake: current Alcohol intake frequency: holidays/special occasions only Patient Tobacco Use Status: Never used Tobacco e-Cigarette/Vaping Use: Never Used Advance Directives: No Advance Directives Information Provided: No Current occupational status: retired Cognitive needs: No Hearing needs: No Vision needs: Yes Physical Exam 2 Vital Signs: Vital Signs: Last Vital Signs Temp 97.8 F 01/10/24 12:08 Pulse 81 01/10/24 12:08 Resp 16 01/10/24 13:41 BP 118/53 L 01/10/24 13:41 Pulse Ox 93 01/10/24 13:41 O2 Del Method Room Air 01/10/24 13:41 BMI result Body Mass Index 21.1 VITAL SIGNS: Reviewed. GENERAL: Well developed, well nourished, in no acute distress. HEAD: Normocephalic/atraumatic EYES: PERRLA, EOMI EARS: Ext canals without abnormality, TMs non-bulging and non-erythematous NOSE: Nares patent bilateral OROPHARYNX: no oral lesions noted, posterior pharynx clear NECK: Supple, no adenopathy LUNGS: Normal breath sounds. No adventitious sounds or accessory muscle use. SpO2<93> requiring 1 L nasal cannula; CHEST: There is no deformity/crepitus or tenderness on palpation CARDIOVASCULAR: Regular rate and rhythm without noted murmurs ABDOMEN: Soft, non-tender, non-distended with bowel sounds. PELVIS: Tenderness to palpation along the posterior right iliac crest that extends between the L4/L5 musculoskeletal pain as well MUSCULOSKELETAL: No tenderness, deformities, or effusions noted on gross inspection. EXTREMITIES: No cyanosis, clubbing or edema. SKIN: Inspection of the skin reveals no rashes NEUROLOGIC: Alert and oriented x 4. Strength and sensation to light touch were grossly intact x 4. Medications Administered Discontinued Medications Generic Name Dose Route Start Last Admin Trade Name Freq PRN Reason Stop Dose Admin Furosemide 60 mg 01/10/24 13:24 01/10/24 13:38 Furosemide 100 Mg/10 Ml Vial IVPUSH 01/10/24 13:25 60 mg ONCE ONE Administration Protocol Medical Decision Making Medical Decision Making [facility] Narrative: 88-year-old male with history and clinical presentation, DDX: Bone lesion, muscle spasm, acute on chronic back pain, compression fracture, viral illness I reviewed all investigations in patient has a persistent and chronic leukopenia, there is a new normocytic anemia that I suspect is anemia of chronic disease but patient also has CAD and will need to receive blood transfusion for this value, patient also has chronically stable thrombocytopenia. Chemistry indices do not demonstrate an MONIKA but there is a chronically stable AST elevation as well as elevated alkaline phosphatase. I sensitivity troponin is 44.2 with a BNP of 1297 which likely explains patient's observed hypoxia. On review of the EKG there are no acute findings and rhythm appears to be roughly similar to prior EKG from 01/19/2014. However, will repeat high sensitivity troponin. Chest x-ray consistent with CHF, this is likely been exacerbated by patient's underlying anemia. Viral testing is negative for COVID-19/influenza. Dispo at this time is admission for acute CHF exacerbation with associated hypoxia secondary to anemia. 1350: I discussed the case with inpatient hospitalist who accepts admission. 1359: I reviewed the CT scan of the L-spine which is significant for widespread osseous metastatic disease and evidence to suggest L1 compression fracture with loss of height 25% and could be causing the pain across the L1 distribution. Differential Diagnosis Differential Diagnoses: The differential diagnosis associated with the presentation includes Please see the discussion above Admission/Observation Consideration of admission/observation: Escalation of care including admission/observation considered Please see the discussion above Consult Healthcare Provider Management of the patient was discussed with: Hospitalist Please see the discussion above Lab Data MDM Lab Attestation statement: I reviewed the patient's lab results. Please see the discussion above 01/10/24 12:31 01/10/24 12:31 Labs: Lab Results 01/10/24 Range/Units 12:31 WBC 3.8 L (4.8-10.8) X10*3/uL RBC 2.48 L D (4.60-5.80) X10*6/uL Hgb 7.2 L D (14.0-18.0) g/dl Hct 22.4 L D (42.0-52.0) % MCV 90.3 (80.0-98.0) fL MCH 29.0 (27.0-33.0) pg MCHC 32.1 (31.0-36.0) g/dl RDW 18.0 H (11.0-16.0) % Plt Count 152 L (160-400) X10*3/uL MPV 9.8 (9.4-12.4) fL Immature Gran % (Auto) 1.0 H (0.0-0.4) % Neut % (Auto) 72.7 (45-73) % Lymph % (Auto) 15.0 L (20-40) % [place] % (Auto) 10.2 (2-11) % Eos % (Auto) 0.8 (0-4) % Baso % (Auto) 0.3 (0-2) % Lymph # (Auto) 0.6 L (1.2-4.9) X10*3/uL [place] # (Auto) 0.4 (0.1-1.2) X10*3/uL Eos # (Auto) 0.0 (0.0-0.4) X10*3/uL Baso # (Auto) 0.0 (0.0-0.2) X10*3/uL Abs Immat Gran (auto) 0.04 H (0.00-0.03) X10*3/uL Absolute Neuts (auto) 2.8 (2.0-8.3) x10*3/uL Absolute Nucleated RBC 0.000 (0.0-0.012) X10*3/uL Nucleated RBC % (auto) 0.0 (0.0-0.2) /100WBC Sodium 138 (135-145) mmol/L Potassium 4.4 (3.3-5.1) mmol/L Chloride 110 H (96-108) mmol/L Carbon Dioxide 21 L (22-29) mmol/L Anion Gap 11 L (12-20) BUN 38 H (9-16) mg/dL Creatinine 0.87 (0.5-1.4) mg/dL Estim Creat Clear Calc 44.3 Estimated GFR > 60 Random Glucose 85 (60-115) mg/dL Calcium 8.3 L (8.4-10.2) mg/dL Total Bilirubin 0.5 (0.0-1.0) mg/dL AST 48 H (5-37) U/L ALT 10 (0-40) U/L Alkaline Phosphatase 472 H (39-117) U/L Troponin I High Sens 44.2 H (<3.5-35.0) ng/L B-Natriuretic Peptide 1297 H (<100) pg/mL Total Protein 5.3 L (6.5-8.0) g/dL Albumin 2.8 L (3.5-5.0) g/dL COVID-19 (VALENTINO) Negative (Negative) COVID-19 Clin Com See Note Influenza Type A (DERIAN) Negative (Negative) Influenza Type B (DERIAN) Negative (Negative) Influenza A & B Note See Note Independent Interpretation I performed an independent interpretation of an: EKG Interpretation: Sinus rhythm with occasional PVC, HR-77, no STEMI, DE/QTC is within normal limits, RBBB at baseline. No significant rhythm changes when compared to prior. Radiology Impression Discussion of test interpretation with radiology: I have reviewed the radiologist's reading. Radiologist Impression: Please see the discussion above External Record Review External record reviewed: Outpatient record, Prior outpatient labs and Prior outpatient radiology Chronic Conditions Patient?s care impacted by: Hypertension CHF, prostate cancer Critical Care Time Critical Care Time Critical Care Time: Yes Total Critical Care Time: 90 Attestation: I personally attest to this time spent taking care of the patient. Discharge Plan Discharge Clinical Impression: Anemia, Hypoxia, Acute on chronic congestive heart failure, Bilateral pleural effusion Patient Disposition: Admitted As Inpatient
[2024-01-10 12:40] LABS: MANUAL DIFF FLAG NO
[2024-01-10 12:41] LABS: Basophils Percent Auto 0.3 % (0-2); Eosinophils Percent Auto 0.8 % (0-4); Hematocrit 22.4 % (42.0-52.0); Hemoglobin 7.2 g/dl (14.0-18.0); Imm Gran Abs Auto 0.04 X10*3/uL (0.00-0.03); Lymphocytes Absolute Auto 0.6 X10*3/uL (1.2-4.9); Mean Corpuscular HGB Conc 32.1 g/dl (31.0-36.0); Mean Corpuscular Volume 90.3 fL (80.0-98.0); Mean Platelet Volume 9.8 fL (9.4-12.4); Monocytes Absolute Auto 0.4 X10*3/uL (0.1-1.2); Monocytes Percent Auto 10.2 % (2-11); Neutrophils Absolute Auto 2.8 x10*3/uL (2.0-8.3); Neutrophils Percent Auto 72.7 % (45-73); Platelet Count 152 X10*3/uL (160-400); Red Blood Count 2.48 X10*6/uL (4.60-5.80); White Blood Count 3.8 X10*3/uL (4.8-10.8)
[2024-01-10 12:58] LABS: Alanine Aminotransferase 10 U/L (0-40); Albumin Level 2.8 g/dL (3.5-5.0); Alkaline Phosphatase 472 U/L (39-117); Anion Gap 11 (12-20); Aspartate Amino Transferase 48 U/L (5-37); Bilirubin Total 0.5 mg/dL (0.0-1.0); Blood Urea Nitrogen 38 mg/dL (9-16); COVID-19 Test Negative (Negative); Calcium 8.3 mg/dL (8.4-10.2); Carbon Dioxide 21 mmol/L (22-29); Chloride 110 mmol/L (96-108); Creatinine Clr Calc Pharmacy 44.3; Estimated Glomerular Filt Rate > 60; Glucose Random 85 mg/dL (60-115); IDNOW Serial# 58CA691E; Potassium 4.4 mmol/L (3.3-5.1); Sodium 138 mmol/L (135-145); Total Protein 5.3 g/dL (6.5-8.0)
[2024-01-10 13:00] LABS: B Type Natriuretic Peptide 1297 pg/mL (<100)
[2024-01-10 13:05] LABS: Troponin-I High Sensitivity 44.2 ng/L (<3.5-35.0)
[2024-01-10 13:09] LABS: IDNOW Serial# 6674DD1D; Influenza A Negative (Negative); Influenza B2 Negative (Negative)
[2024-01-10] MEDS: Furosemide 100 MG/10 ML VIAL 60 MG IVPUSH (13:38)
--- NOTE | 2024-01-10 14:49 | PHA.MEDREC ---
Pharmacy Consult ? Medication Reconciliation Pharmacy has completed the medication reconciliation. Patients family, ( and daughter) confirmed that patient in no longer taking any medications. He does have a recent claim history of metoprolol succ er24, alendronate 70mg, allpurinol 100mg, omeprazole 20mg, ezetimbe 10mg and, rosuvastatin 40 mg.
--- NOTE | 2024-01-10 15:09 | PM.IMHP ---
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 ?Pt has hx of osteoporosis and chronic back pain, but pain worsened significantly yesterday to the point where he could no longer tolerate it. Pain associated with movement and feels like someone is hitting him with a ?sledgehammer?. Patient denies any fall or trauma to the area. Denies shortness of breath, but admits he has been getting tired with going up stairs for the past couple of weeks. Family is considering getting a stair lift. Patient also notes that he has been feeling more weak than normal, and notes some increased swelling in his ankles bilaterally. Also has been experiencing some lightheadedness and dizziness. Denies any known active bleeding: No hematemesis, hemoptysis, melena, or hematochezia. Review of patient's Oncology [facility] records indicate known metastasis to lungs and bone, and recommend consideration of palliative radiation if patient develops pain symptoms, or consideration of hospice if he begins to functionally decline. Imaging in the ED demonstrate extensive osseous metastasis, though patient and family seem rather surprised by this development, or at least to the extent of the metastasis. Family states they have a lot to digest and will discuss goals of care. Family denies any known diagnosis of CHF. In the ED pt had mildly elevated BP of 144/61, vitals otherwise WNL. Labs were significant for H&H 7.2/22.4, initial troponin 44.2, BNP 1297, total protein 5.3, albumin 2.8. Labs otherwise WNL or at baseline. Tested negative for COVID, influenza type a and B. CXR showed diffuse sclerotic disease in the bones with no fracture seen, small to moderate right pleural effusion and bibasilar atelectasis/consolidation. Lumbar spine CT showed evidence of widespread osseous metastatic disease with likely chronic compression deformity of L1 vertebral body, and [id number] neuroforaminal encroachment at multiple levels. CT of pelvis found no acute pelvic fracture or dislocation, but did show interval development of extensive sclerotic metastatic tumor infiltration in the visualized lumbosacral spine, bilateral bony pelvis, and proximal femoral shafts. EKG demonstrated showed sinus rhythm with occasional PVCs with left axis deviation and RBBB. Pt was treated with furosemide 60 mg IV. Pt will be admitted to the hospital for treatment and further evaluation of new onset CHF. Review of Systems Review of Systems: Right-sided back pain Lightheadedness, dizziness BETANCOURT, especially going up stairs Increased weakness, fatigue Lower leg edema around ankles bilaterally Chronic occasionally productive cough, at baseline Denies hematemesis, hemoptysis, melena, hematochezia No chest pain/pressure, palpitations Denies shortness of breath [facility] Medical History Hyperlipidemia Osteoporosis CAD (coronary artery disease) Gout Prostate cancer CKD (chronic kidney disease) stage 3, GFR 30-59 ml/min HTN (hypertension) CHF (congestive heart failure) Family History Father No problems noted. Mother No problems noted. Surgical History Hx of colonoscopy Social History Housing: House Alcohol intake: current Alcohol intake frequency: holidays/special occasions only Patient Tobacco Use Status: Never used Tobacco e-Cigarette/Vaping Use: Never Used Advance Directives: No Advance Directives Information Provided: No Current occupational status: retired Cognitive needs: No Hearing needs: No Vision needs: Yes Meds Allergies Allergy/AdvReac Type Severity Reaction Status Date / Time No Known Allergies Allergy Verified 01/10/24 12:17 Home Medications Medication Instructions Recorded Confirmed Last Taken Type No Known Home Meds 01/10/24 01/10/24 Unknown History Physical Exam Vital Signs and Narrative: Vital Signs: Last Vital Signs Temp 97.8 F 01/10/24 12:08 Pulse 81 01/10/24 12:08 Resp 16 01/10/24 13:41 BP 118/53 L 01/10/24 13:41 Pulse Ox 93 01/10/24 13:41 O2 Del Method Room Air 01/10/24 13:41 BMI result Body Mass Index 21.1 Constitutional: Alert, frail-looking. In no acute distress. Mental Status: Oriented to person, place and time. Eyes: Pupils are equal, round, and reactive to light. Ear, Nose, and Throat: Oropharynx clear, mucous membranes moist. Ears and nose without deformities. Trachea midline. Respiratory: Clear to auscultation bilaterally. No wheezing, rales, or rhonchi. Cardiovascular: S1, S2 regular. No murmurs, rubs, or gallops. Gastrointestinal: Abdomen soft, non-tender, non-distended. Normal bowel sounds. Neurologic: Cranial nerves II-XII are grossly intact bilaterally. No focal neurological deficits. Moves all extremities spontaneously. Skin: Warm, dry. Musculoskeletal: No cyanosis or clubbing. Extremities: Trace bilateral pitting edema around ankles. Psychiatric: Normal mood and affect. Results Labs 01/10/24 12:31 01/10/24 12:31 Labs: Laboratory Results - last 24 hr 01/10/24 01/10/24 12:31 13:59 MCV 90.3 MCH 29.0 MCHC 32.1 RDW 18.0 H Plt Count 152 L MPV 9.8 Immature Gran % (Auto) 1.0 H Neut % (Auto) 72.7 Lymph % (Auto) 15.0 L [place] % (Auto) 10.2 Eos % (Auto) 0.8 Baso % (Auto) 0.3 Lymph # (Auto) 0.6 L [place] # (Auto) 0.4 Eos # (Auto) 0.0 Baso # (Auto) 0.0 Abs Immat Gran (auto) 0.04 H Absolute Neuts (auto) 2.8 Absolute Nucleated RBC 0.000 Nucleated RBC % (auto) 0.0 Anion Gap 11 L Estim Creat Clear Calc 44.3 Estimated GFR > 60 Random Glucose 85 Calcium 8.3 L Total Bilirubin 0.5 AST 48 H ALT 10 Alkaline Phosphatase 472 H Troponin I High Sens 44.2 H B-Natriuretic Peptide 1297 H Total Protein 5.3 L Albumin 2.8 L COVID-19 (VALENTINO) Negative COVID-19 Clin Com See Note Influenza Type A (DERIAN) Negative Influenza Type B (DERIAN) Negative Influenza A & B Note See Note Blood Type A Positive Antibody Screen NEGATIVE Crossmatch See Detail Imaging Radiologist's Impressions: Impressions Chest X-Ray 01/10/24 12:45 IMPRESSION: Diffuse sclerotic disease of the bones. No fracture seen. Small to moderate right pleural effusion and bibasilar atelectasis/consolidation. Lumbar Spine CT 01/10/24 13:21 IMPRESSION: There is evidence of widespread osseous metastatic disease in a patient with a clinical history of prostate carcinoma. There is a chronic compression deformity of the L1 vertebral body with impaction of the upper endplate resulting in approximately 25% vertebral height loss anteriorly. No overt retropulsion of posterior cortex at this level. Canal patency is not well assessed on this examination due to inherent limitations of CT without intrathecal contrast. Disc osteophyte spurring in conjunction with facet degenerative change causes mild to moderate neuroforaminal encroachment at multiple levels. 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 Pt was treated with furosemide 60 mg IV. Pt will be admitted to the hospital for treatment and further evaluation of new onset CHF. New onset CHF Pt with increasing BETANCOURT (especially going upstairs), bilateral ankle swelling, elevated BNP, CXR showing [id number] right pleural effusion Pt received Furosemide 60mg IV in ED Will treat with Lasix 40mg IV daily for now Follow Lymark, Mag, I/O daily weights, low-salt diet Family currently considering goals of care Consider Hospice consult if family wishes Consider echocardigram and cardiology consult if pt and family do not want to pursue Hospice Monitor on telemetry Anemia Patient's H&H 7.2/22.4, down from 11 0.3/34.5 on 07/04/2023 No clear source of bleeding: pt denies hematemesis, hemoptysis, melena, hematochezia Likely multifactorial: Anemia of chronic disease in patient with CKD 3, increasing osseous metastasis Pt transfused 1 unit of PRBCs in ED Will check fecal occult blood Follow CBC Back pain Patient with severe right-sided back pain since yesterday Likely secondary to advancing prostate metastasis to bone Imaging of pelvis, lumbar spine, and CXR show extensive interval osseous infiltration throughout, including lumbosacral spine Analgesics for pain management Castrate resistant prostate cancer Previously known metastasized to lungs and bones, though imaging here shows extensive interval changes Pt and family discussing goals of care, including hospice Should follow-up outpatient with [facility] Oncology if want to pursue palliative radiation therapy DNR/DNI, confirmed with patient and family at bedside Attending:?Dr. Coleman DVT Prophylaxis: Pneumatic boots d/t anemia in need of transfusion Pt will require a hospitalization of at least two nights for treatment of?acute new onset CHF. Patient required hospitalization for administration of IV diuretics and close monitoring of labs and cardiac function. Quality Stroke Does the patient have a stroke diagnosis?: No VTE Prior VTE?: No VTE Risk Level:: Medical - moderate - high VTE Device Contraindication: N/A - Device Ordered VTE Drug Contraindication: Treatment Not Indicated
--- NOTE | 2024-01-10 16:11 | PC.NURSE ---
Patient admitted via ambulance due to increasing back pain, labs noted H&H low, 1 unit PRBCs ordered, currently infusing. BNP noted to be elevated, Lasix IV x 1 ordered and given with good output. Intermittent hypoxia noted, patient placed on 2L O2 with good effect. Will Continue to monitor.
[2024-01-10] MEDS: oxyCODONE HCl Immed Release 5 MG TABLET PO (16:31)
--- NOTE | 2024-01-10 17:23 | PC.NURSE ---
texas cath in place, transfsion completed, well tolerated, no signs of transfusion reaction or worsened fluid overload.
[2024-01-10 17:29] LABS: OBS Int Ctl Valid YES; OBS1 NEGATIVE (NEGATIVE)
--- NOTE | 2024-01-10 17:37 | MHC.EDTECH ---
Patient vitals taken belonging list done ,stool card collected and sent to lab ,Patient was reposition and boosted up in bed ,texas cath in Place .
[2024-01-10] MEDS: Morphine Sulfate Immed Release 15 MG TABLET PO (22:01)
[2024-01-11 03:08] VITALS: BP 149/68; PULSE 75; RESP 19; TEMP 36; O2SAT 98
[2024-01-11 06:14] VITALS: BMI 20.9
[2024-01-11 07:14] VITALS: BP 135/55; PULSE 78; RESP 16; TEMP 37.1; O2SAT 96
[2024-01-11 07:34] LABS: Hematocrit 28.5 % (42.0-52.0); Hemoglobin 9.1 g/dl (14.0-18.0); Mean Corpuscular HGB Conc 31.9 g/dl (31.0-36.0); Mean Corpuscular Hemoglobin 29.4 pg (27.0-33.0); Mean Corpuscular Volume 91.9 fL (80.0-98.0); Mean Platelet Volume 9.8 fL (9.4-12.4); NRBC Pct Auto 0.5 /100WBC (0.0-0.2); Platelet Count 157 X10*3/uL (160-400); Red Cell Distribution Width 17.2 % (11.0-16.0); White Blood Count 4.1 X10*3/uL (4.8-10.8)
[2024-01-11 08:03] LABS: Anion Gap 14 (12-20); Blood Urea Nitrogen 41 mg/dL (9-16); Calcium 8.5 mg/dL (8.4-10.2); Carbon Dioxide 22 mmol/L (22-29); Chloride 107 mmol/L (96-108); Estimated Glomerular Filt Rate > 60; Glucose Random 55 mg/dL (60-115); Magnesium 2.3 mg/dL (1.6-2.6); Potassium 4.2 mmol/L (3.3-5.1); Sodium 139 mmol/L (135-145)
[2024-01-11] MEDS: 0.9 % Sodium Chloride Flush 3 ML SYRINGE IVFLUSH ×2 (08:13→23:42)
[2024-01-11] MEDS: Dextrose 50 % 25 GM/50 ML SYRINGE IVPUSH (08:13)
[2024-01-11] MEDS: Furosemide 40 MG/4 ML VIAL IVPUSH (08:24)
[2024-01-11 08:45] LABS: Glucose, Whole Blood 128 mg/dL (60-115)
--- NOTE | 2024-01-11 08:47 | MHC.CM.PN ---
IMM 01/11/24, Pt lives with his , he has HCP at home, CM to request a copy from . For med. equip. he uses a walker and is in the process of installling a stair lift in his house. He does not use any home health services. PCP; Prachi Altman, family to transport home upon DC. CM to follow and assist with DC plan.
[2024-01-11 11:07] VITALS: BP 147/76; PULSE 84; RESP 16; TEMP 37.1; O2SAT 96
--- NOTE | 2024-01-11 12:05 | P.PNIM_ITS ---
Subjective Subjective Date of Service: 01/11/24 Review of Systems Follow up CHF doing well no cp, sob Physical Exam 2 Vital Signs: Vital Signs: Last Vital Signs Temp 98.8 F 01/11/24 11:07 Pulse 84 01/11/24 11:07 Resp 16 01/11/24 11:07 BP 147/76 H 01/11/24 11:07 Pulse Ox 96 01/11/24 11:07 O2 Del Method Nasal Cannula 01/11/24 11:07 O2 Flow Rate 2 01/11/24 03:08 BMI result Body Mass Index 20.9 Appearing in no acute distress, [place] lung sounds are clear to auscultation heart regular rate rhythm, clear S1, S2 positive bowel sounds, abdomen is soft, nontender neuro patient is alert x3, no focal deficits Objective Data Active Medications Acetaminophen (Acetaminophen 325 Mg Tablet) 650 mg PO Q6H PRN PRN Reason: Pain, Mild (Pain Scale 1-3) Benzonatate (Benzonatate 100 Mg Capsule) 100 mg PO TID PRN PRN Reason: Cough Docusate Sodium (Docusate Sodium 100 Mg Capsule) 100 mg PO DAILY PRN PRN Reason: Constipation Furosemide (Furosemide 40 Mg/4 Ml Vial) 40 mg IVPUSH DAILY PENDING SALE TO [facility]; Protocol Last Admin: 01/11/24 08:24 Dose: 40 mg Documented By: VINCE Melatonin (Melatonin 3 Mg Tablet) 6 mg PO BEDTIME PRN PRN Reason: Insomnia Ondansetron HCl (Ondansetron Hcl 4 Mg/2 Ml Vial) 4 mg IVPUSH Q8H PRN PRN Reason: Nausea and Vomiting Oxycodone HCl (Oxycodone Hcl Immed Release 5 Mg Tablet) 5 mg PO Q4H PRN PRN Reason: Pain, Moderate(Pain Scale 4-6) Sodium Chloride (0.9 % Sodium Chloride Flush 3 Ml Syringe) 3 ml IVFLUSH QSHIFT PENDING SALE TO [facility] Last Admin: 01/11/24 08:13 Dose: 3 ml Documented By: VINCE Labs 01/11/24 07:12 01/11/24 07:12 Labs: Laboratory Results - last 24 hr 01/10/24 01/10/24 01/10/24 12:31 13:59 17:23 MCV 90.3 MCH 29.0 MCHC 32.1 RDW 18.0 H Plt Count 152 L MPV 9.8 Immature Gran % (Auto) 1.0 H Neut % (Auto) 72.7 Lymph % (Auto) 15.0 L [place] % (Auto) 10.2 Eos % (Auto) 0.8 Baso % (Auto) 0.3 Lymph # (Auto) 0.6 L [place] # (Auto) 0.4 Eos # (Auto) 0.0 Baso # (Auto) 0.0 Abs Immat Gran (auto) 0.04 H Absolute Neuts (auto) 2.8 Absolute Nucleated RBC 0.000 Nucleated RBC % (auto) 0.0 Anion Gap 11 L Estim Creat Clear Calc 44.3 Estimated GFR > 60 POC Glucose Random Glucose 85 Calcium 8.3 L Magnesium Total Bilirubin 0.5 AST 48 H ALT 10 Alkaline Phosphatase 472 H Troponin I High Sens 44.2 H B-Natriuretic Peptide 1297 H Total Protein 5.3 L Albumin 2.8 L Stool Occult Blood NEGATIVE COVID-19 (VALENTINO) Negative COVID-19 Clin Com See Note Influenza Type A (DERIAN) Negative Influenza Type B (DERIAN) Negative Influenza A & B Note See Note Blood Type A Positive Antibody Screen NEGATIVE Crossmatch See Detail 01/11/24 01/11/24 07:12 08:41 MCV 91.9 MCH 29.4 MCHC 31.9 RDW 17.2 H Plt Count 157 L MPV 9.8 Immature Gran % (Auto) Neut % (Auto) Lymph % (Auto) [place] % (Auto) Eos % (Auto) Baso % (Auto) Lymph # (Auto) [place] # (Auto) Eos # (Auto) Baso # (Auto) Abs Immat Gran (auto) Absolute Neuts (auto) Absolute Nucleated RBC 0.020 H Nucleated RBC % (auto) 0.5 H Anion Gap 14 Estim Creat Clear Calc 37.0 Estimated GFR > 60 POC Glucose 128 H Random Glucose 55 L* Calcium 8.5 Magnesium 2.3 Total Bilirubin AST ALT Alkaline Phosphatase Troponin I High Sens B-Natriuretic Peptide Total Protein Albumin Stool Occult Blood COVID-19 (VALENTINO) COVID-19 Clin Com Influenza Type A (DERIAN) Influenza Type B (DERIAN) Influenza A & B Note Blood Type Antibody Screen Crossmatch Assessment and Plan (1) New onset of congestive heart failure: Status: Acute Plan 88-year-old male with a PMH significant for CAD s/p CABG in 1998, CKD 3, gout, HTN, HLD, osteoporosis, and 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 Pt was treated with furosemide 60 mg IV. Pt will be admitted to the hospital for treatment and further evaluation of new onset CHF. New onset CHF. Unspecified Pt with increasing BETANCOURT (especially going upstairs), bilateral ankle swelling, elevated BNP, CXR showing [id number] right pleural effusion Lasix 40mg IV daily for now Family currently considering goals of care, Consider Hospice consult if family wishes echocardiogram pending Monitor on telemetry Anemia. HH stable No clear source of bleeding: pt denies hematemesis, hemoptysis, melena, hematochezia Likely multifactorial: Anemia of chronic disease in patient with CKD 3, increasing osseous metastasis s/p 1 unit of PRBCs Back pain Patient with severe right-sided back pain since yesterday Likely secondary to advancing prostate metastasis to bone Imaging of pelvis, lumbar spine, and CXR show extensive interval osseous infiltration throughout, including lumbosacral spine Analgesics for pain management Castrate resistant prostate cancer Previously known metastasized to lungs and bones, though imaging here shows extensive interval changes Pt and family discussing goals of care, including hospice Should follow-up outpatient with [facility] if want to pursue palliative radiation therapy DNR/DNI, confirmed with patient and family at bedside Attending:?Dr. Arnold DVT Prophylaxis: Pneumatic boots Pt will require a hospitalization of at least two nights for treatment of?acute new onset CHF. Patient required hospitalization for administration of IV diuretics and close monitoring of labs and cardiac function. Quality Stroke Does the patient have a stroke diagnosis?: No VTE Prior VTE?: No VTE Risk Level:: Medical - moderate - high VTE Device Contraindication: N/A - Device Ordered VTE Drug Contraindication: Treatment Not Indicated
[2024-01-11] MEDS: oxyCODONE HCl Immed Release 5 MG TABLET PO ×3 (12:38→23:37)
[2024-01-11 15:33] VITALS: BP 144/57; PULSE 86; RESP 16; TEMP 37.5; O2SAT 95
[2024-01-11 19:54] VITALS: BP 131/61; PULSE 115; RESP 20; TEMP 37.7; O2SAT 90
[2024-01-11 23:24] VITALS: BP 140/64; PULSE 89; RESP 20; TEMP 36.7; O2SAT 93
[2024-01-12 03:17] VITALS: BP 143/98; PULSE 87; RESP 20; TEMP 36.8; O2SAT 95
[2024-01-12 06:00] VITALS: BMI 23.4
[2024-01-12 07:40] VITALS: BP 121/58; PULSE 80; RESP 20; TEMP 36.9; O2SAT 96
[2024-01-12 07:56] LABS: Hematocrit 29.3 % (42.0-52.0); Hemoglobin 9.6 g/dl (14.0-18.0); Mean Corpuscular HGB Conc 32.8 g/dl (31.0-36.0); Mean Corpuscular Volume 91.6 fL (80.0-98.0); Mean Platelet Volume 9.8 fL (9.4-12.4); Platelet Count 143 X10*3/uL (160-400); White Blood Count 4.6 X10*3/uL (4.8-10.8)
[2024-01-12] MEDS: oxyCODONE HCl Immed Release 5 MG TABLET PO ×2 (08:12→16:48)
[2024-01-12] MEDS: 0.9 % Sodium Chloride Flush 3 ML SYRINGE IVFLUSH ×2 (08:13→16:49)
[2024-01-12] MEDS: Furosemide 40 MG/4 ML VIAL IVPUSH (08:13)
[2024-01-12 08:15] LABS: Anion Gap 12 (12-20); Blood Urea Nitrogen 41 mg/dL (9-16); Calcium 8.2 mg/dL (8.4-10.2); Carbon Dioxide 24 mmol/L (22-29); Chloride 103 mmol/L (96-108); Creatinine Clr Calc Pharmacy 38.6; Estimated Glomerular Filt Rate > 60; Glucose Random 91 mg/dL (60-115); Magnesium 2.1 mg/dL (1.6-2.6); Potassium 3.9 mmol/L (3.3-5.1); Sodium 135 mmol/L (135-145)
--- NOTE | 2024-01-12 09:33 | HO.PM.IMPN ---
Subjective Subjective Date of Service: 01/12/24 Review of Systems Follow up CHF doing well no cp, sob Physical Exam Vital Signs: Vital Signs: Last Vital Signs Temp 98.4 F 01/12/24 07:40 Pulse 80 01/12/24 07:40 Resp 20 01/12/24 07:40 BP 121/58 L 01/12/24 07:40 Pulse Ox 96 01/12/24 07:40 O2 Del Method Nasal Cannula 01/12/24 07:40 O2 Flow Rate 2 01/12/24 07:40 BMI result Body Mass Index 23.4 Appearing in no acute distress, [place] lung sounds are clear to auscultation heart regular rate rhythm, clear S1, S2 positive bowel sounds, abdomen is soft, nontender neuro patient is alert x3, no focal deficits Objective Data Active Medications Acetaminophen (Acetaminophen 325 Mg Tablet) 650 mg PO Q6H PRN PRN Reason: Pain, Mild (Pain Scale 1-3) Benzonatate (Benzonatate 100 Mg Capsule) 100 mg PO TID PRN PRN Reason: Cough Docusate Sodium (Docusate Sodium 100 Mg Capsule) 100 mg PO DAILY PRN PRN Reason: Constipation Furosemide (Furosemide 40 Mg/4 Ml Vial) 40 mg IVPUSH DAILY [facility]; Protocol Last Admin: 01/12/24 08:13 Dose: 40 mg Documented By: VINCE Melatonin (Melatonin 3 Mg Tablet) 6 mg PO BEDTIME PRN PRN Reason: Insomnia Ondansetron HCl (Ondansetron Hcl 4 Mg/2 Ml Vial) 4 mg IVPUSH Q8H PRN PRN Reason: Nausea and Vomiting Oxycodone HCl (Oxycodone Hcl Immed Release 5 Mg Tablet) 5 mg PO Q4H PRN PRN Reason: Pain, Moderate(Pain Scale 4-6) Last Admin: 01/12/24 08:12 Dose: 5 mg Documented By: VINCE Sodium Chloride (0.9 % Sodium Chloride Flush 3 Ml Syringe) [facility] Last Admin: 01/12/24 08:13 Dose: 3 ml Documented By: VINCE Labs 01/12/24 07:18 01/12/24 07:18 Labs: Laboratory Results - last 24 hr 01/12/24 07:18 MCV 91.6 MCH 30.0 MCHC 32.8 RDW 17.0 H Plt Count 143 L MPV 9.8 Absolute Nucleated RBC 0.000 Nucleated RBC % (auto) 0.0 Anion Gap 12 Estim Creat Clear Calc 38.6 Estimated GFR > 60 Random Glucose 91 Calcium 8.2 L Magnesium 2.1 Assessment and Plan (1) New onset of congestive heart failure: Status: Acute Plan 88-year-old male with a PMH significant for CAD s/p CABG in 1998, CKD 3, gout, HTN, HLD, osteoporosis, and 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 Pt was treated with furosemide 60 mg IV. Pt will be admitted to the hospital for treatment and further evaluation of new onset CHF. New onset CHF. Unspecified Pt with increasing BETANCOURT (especially going upstairs), bilateral ankle swelling, elevated BNP, CXR showing [id number] right pleural effusion Lasix 40mg IV daily for now Monitor on telemetry patient anf family interested in palliative care Anemia. HH stable No clear source of bleeding: pt denies hematemesis, hemoptysis, melena, hematochezia Likely multifactorial: Anemia of chronic disease in patient with CKD 3, increasing osseous metastasis s/p 1 unit of PRBCs Back pain Patient with severe right-sided back pain since yesterday Likely secondary to advancing prostate metastasis to bone Imaging of pelvis, lumbar spine, and CXR show extensive interval osseous infiltration throughout, including lumbosacral spine Analgesics for pain management Castrate resistant prostate cancer Previously known metastasized to lungs and bones, though imaging here shows extensive interval changes Pt and family discussing goals of care, including hospice/palliative care Should follow-up outpatient with [facility] if want to pursue palliative radiation therapy DNR/DNI, confirmed with patient and family at bedside Attending:?Dr. Arnold DVT Prophylaxis: Pneumatic boots Pt will require a hospitalization of at least two nights for treatment of?acute new onset CHF. Patient required hospitalization for administration of IV diuretics and close monitoring of labs and cardiac function. Quality Stroke Does the patient have a stroke diagnosis?: No VTE Prior VTE?: No VTE Risk Level:: Medical - moderate - high VTE Device Contraindication: N/A - Device Ordered VTE Drug Contraindication: Treatment Not Indicated
--- NOTE | 2024-01-12 09:35 | W.MHC.ACPN ---
Advanced Care Planning Note Advanced Care Planning Note Time spent (in minutes): 30 Narrative: Patients and daughter present with other daughter and son on speaker phone. Discussed plan. Palliative vs. Hospice. Family would still like to treat medical problems that arise but do not want aggressive treatments including surgery. Plan will be for patient to be seen by physical therapy to determine whether patient needed str vs home with PT. Family concerned with pain that the patient was having, they were reassured that he would have a prescription for pain medication on discharge and then primary care provider would then continue prescriptions in the community. They had questions re insurance and available community assistance. Spoke with family service caseworker, Caroline who will plan on meeting with family today. Problems Discussed (1) New onset of congestive heart failure:
[2024-01-12 11:41] VITALS: BP 139/66; PULSE 84; RESP 20; TEMP 36.9; O2SAT 96
--- NOTE | 2024-01-12 12:39 | MHC.CM.PN ---
Provider let CM know that she has met with family and they would like to have palliative care for pt. They may want him to have treatment if he needs it in the future, but will not treat aggressively. Will refer to [facility] to ask family choice on which agency and await PT eval recommendations. DC plan is home with VNA.
--- NOTE | 2024-01-12 13:51 | MHC.CM.PN ---
CM met with pt and family to discuss VNA services. We reviewed what services are provided, family does not have a preference, CM will refer to [facility] and others to find one that accepts pt's insurance. Pt will eventually go on hospice, CM discussed these services with family. Pt has a [employer] ins. policy, CM encouraged family to open a claim and obtain private home health services to help with care. DC plan is for pt to return home with VNA and family care.
[2024-01-12 16:00] VITALS: BP 151/64; PULSE 87; RESP 16; TEMP 37; O2SAT 91
[2024-01-12 19:20] VITALS: BP 138/64; PULSE 92; RESP 18; TEMP 37.2; O2SAT 86
[2024-01-12 23:11] VITALS: BP 130/70; PULSE 86; RESP 16; TEMP 37.1; O2SAT 97
[2024-01-13] MEDS: 0.9 % Sodium Chloride Flush 3 ML SYRINGE IVFLUSH ×2 (01:26→09:26)
[2024-01-13] MEDS: oxyCODONE HCl Immed Release 5 MG TABLET PO ×3 (02:00→14:52)
[2024-01-13 03:12] VITALS: BP 140/63; PULSE 82; RESP 18; TEMP 37.1; O2SAT 97
[2024-01-13] MEDS: Morphine Sulfate 2 MG/ML CARTRIDGE 4 MG IVPUSH (03:21)
[2024-01-13 06:00] VITALS: BMI 21.3
[2024-01-13 06:23] LABS: Hematocrit 27.6 % (42.0-52.0); Hemoglobin 9.4 g/dl (14.0-18.0); Mean Corpuscular HGB Conc 34.1 g/dl (31.0-36.0); Mean Corpuscular Hemoglobin 30.4 pg (27.0-33.0); Mean Corpuscular Volume 89.3 fL (80.0-98.0); Mean Platelet Volume 10.4 fL (9.4-12.4); Platelet Count 124 X10*3/uL (160-400); Red Blood Count 3.09 X10*6/uL (4.60-5.80); Red Cell Distribution Width 16.9 % (11.0-16.0); White Blood Count 4.6 X10*3/uL (4.8-10.8)
[2024-01-13 06:47] LABS: Anion Gap 12 (12-20); Blood Urea Nitrogen 38 mg/dL (9-16); Calcium 8.2 mg/dL (8.4-10.2); Carbon Dioxide 27 mmol/L (22-29); Chloride 98 mmol/L (96-108); Creatinine Clr Calc Pharmacy 41.4; Estimated Glomerular Filt Rate > 60; Glucose Random 102 mg/dL (60-115); Potassium 3.5 mmol/L (3.3-5.1); Sodium 133 mmol/L (135-145)
[2024-01-13 07:25] VITALS: BP 115/56; PULSE 82; RESP 20; TEMP 36.6; O2SAT 98
[2024-01-13] MEDS: Furosemide 40 MG/4 ML VIAL IVPUSH (09:26)
--- NOTE | 2024-01-13 10:27 | P.PNIM_ITS ---
Subjective Subjective Date of Service: 01/13/24 Review of Systems Follow up CHF doing well no cp, sob Physical Exam 2 Vital Signs: Vital Signs: Last Vital Signs Temp 97.9 F 01/13/24 07:25 Pulse 82 01/13/24 07:25 Resp 20 01/13/24 07:25 BP 115/56 L 01/13/24 07:25 Pulse Ox 98 01/13/24 07:25 O2 Del Method Nasal Cannula 01/13/24 07:25 O2 Flow Rate 2 01/13/24 07:25 BMI result Body Mass Index 21.3 Appearing in no acute distress lung sounds are clear to auscultation heart regular rate rhythm, clear S1, S2 positive bowel sounds, abdomen is soft, nontender neuro patient is alert x3, no focal deficits Objective Data Active Medications Acetaminophen (Acetaminophen 325 Mg Tablet) 650 mg PO Q6H PRN PRN Reason: Pain, Mild (Pain Scale 1-3) Benzonatate (Benzonatate 100 Mg Capsule) 100 mg PO TID PRN PRN Reason: Cough Docusate Sodium (Docusate Sodium 100 Mg Capsule) 100 mg PO DAILY PRN PRN Reason: Constipation Furosemide (Furosemide 40 Mg/4 Ml Vial) 40 mg IVPUSH DAILY [facility]; Protocol Last Admin: 01/13/24 09:26 Dose: 40 mg Documented By: VINCE Melatonin (Melatonin 3 Mg Tablet) 6 mg PO BEDTIME PRN PRN Reason: Insomnia Ondansetron HCl (Ondansetron Hcl 4 Mg/2 Ml Vial) 4 mg IVPUSH Q8H PRN PRN Reason: Nausea and Vomiting Oxycodone HCl (Oxycodone Hcl Immed Release 5 Mg Tablet) 5 mg PO Q4H PRN PRN Reason: Pain, Moderate(Pain Scale 4-6) Last Admin: 01/13/24 09:25 Dose: 5 mg Documented By: VINCE Sodium Chloride (0.9 % Sodium Chloride Flush 3 Ml Syringe) 3 ml IVFLUSH [facility] Last Admin: 01/13/24 09:26 Dose: 3 ml Documented By: VINCE Labs 01/13/24 05:54 01/13/24 05:54 Labs: Laboratory Results - last 24 hr 01/13/24 05:54 MCV 89.3 MCH 30.4 MCHC 34.1 RDW 16.9 H Plt Count 124 L MPV 10.4 Absolute Nucleated RBC 0.000 Nucleated RBC % (auto) 0.0 Anion Gap 12 Estim Creat Clear Calc 41.4 Estimated GFR > 60 Random Glucose 102 Calcium 8.2 L Magnesium 2.0 Assessment and Plan (1) New onset of congestive heart failure: Status: Acute Plan 88-year-old male with a PMH significant for CAD s/p CABG in 1998, CKD 3, gout, HTN, HLD, osteoporosis, and 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 Pt was treated with furosemide 60 mg IV. Pt will be admitted to the hospital for treatment and further evaluation of new onset CHF. New onset CHF. Unspecified Pt with increasing BETANCOURT (especially going upstairs), bilateral ankle swelling, elevated BNP, CXR showing [id number] right pleural effusion Lasix 40mg IV daily for now Monitor on telemetry patient and family interested in palliative care PT rec STR Anemia. HH stable No clear source of bleeding: pt denies hematemesis, hemoptysis, melena, hematochezia Likely multifactorial: Anemia of chronic disease in patient with CKD 3, increasing osseous metastasis s/p 1 unit of PRBCs Back pain Patient with severe right-sided back pain since yesterday Likely secondary to advancing prostate metastasis to bone Imaging of pelvis, lumbar spine, and CXR show extensive interval osseous infiltration throughout, including lumbosacral spine Analgesics for pain management Castrate resistant prostate cancer Previously known metastasized to lungs and bones, though imaging here shows extensive interval changes Pt and family discussing goals of care, including hospice/palliative care Should follow-up outpatient with [facility] if want to pursue palliative radiation therapy DNR/DNI, confirmed with patient and family at bedside Attending:?Dr. Arnold DVT Prophylaxis: Pneumatic boots continue hospital stay for treatment of?acute new onset CHF. Patient required hospitalization for administration of IV diuretics and close monitoring of labs and cardiac function. Quality Stroke Does the patient have a stroke diagnosis?: No VTE Prior VTE?: No VTE Risk Level:: Medical - moderate - high VTE Device Contraindication: N/A - Device Ordered VTE Drug Contraindication: Treatment Not Indicated
[2024-01-13 10:48] VITALS: PULSE 101; O2SAT 87
[2024-01-13 11:36] VITALS: BP 128/60; PULSE 84; RESP 20; TEMP 36.6; O2SAT 95
[2024-01-13 13:08] VITALS: BMI 21.3
--- NOTE | 2024-01-13 13:26 | MHC.CM.PN ---
PT CLEARED TO DC TO STR TODAY CM MET WITH FAMILY, THEY HAVE ACCEPTED A BED OFFER FROM [facility] PT WILL TRANSFER AT 1500 HOURS VIA [facility]
--- NOTE | 2024-01-13 13:42 | MHC.CLN ---
NUTRITION CONSULT FOR WEIGHT LOSS AND METASTATIC CANCER. DIET=2 GRAM SODIUM DUE TO CHF WITH DIURESIS. INTAKE APPEARS TO BE USUALLY POOR. FAMILY REPORTS THAT ATE 100% AT LUNCH TODAY. SUPPLEMENT ENSURE TID PROVIDES 1050 KCALS, 60 G PROTEIN. PATIENT LIKES AND ACCEPTS SUPPLEMENT. NO PRESSURE INJURIES NOTED. HAS FOAM DRESSING TO BUTTOCKS. SIGNIFICANT WEIGHT LOSS X 9 MONTHS, -19%. NON SEVERE MALNUTRITION IN THE CONTEXT OF CHRONIC ILLNESS. CONTINUE CURRENT DIET AND SUPPLEMENT. FAMILY WOULD LIKE PATIENT TO CONTINUE SUPPLEMENT UPON DISCHARGE. SEE CLINICAL NUTRITION ASSESSMENT 01/13/24.
[2024-01-13] MEDS: Docusate Sodium 100 MG CAPSULE PO (14:03)
--- NOTE | 2024-01-13 14:03 | PM.DS ---
DS: Providers Provider Date of Service: 01/13/24 Date of admission: 01/10/24 16:30 Primary care physician: Prachi Altman MD DS: Diagnosis Discharge Diagnosis (1) New onset of congestive heart failure: Status: Acute DS: Summary Hospital Course Hospital Course: History and physical as per admitting provider. 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 ?Pt has hx of osteoporosis and chronic back pain, but pain worsened significantly yesterday to the point where he could no longer tolerate it. Pain associated with movement and feels like someone is hitting him with a ?sledgehammer?. Patient denies any fall or trauma to the area. Denies shortness of breath, but admits he has been getting tired with going up stairs for the past couple of weeks. Family is considering getting a stair lift. Patient also notes that he has been feeling more weak than normal, and notes some increased swelling in his ankles bilaterally. Also has been experiencing some lightheadedness and dizziness. Denies any known active bleeding: No hematemesis, hemoptysis, melena, or hematochezia. Review of patient's Oncology [facility] records indicate known metastasis to lungs and bone, and recommend consideration of palliative radiation if patient develops pain symptoms, or consideration of hospice if he begins to functionally decline. Imaging in the ED demonstrate extensive osseous metastasis, though patient and family seem rather surprised by this development, or at least to the extent of the metastasis. Family states they have a lot to digest and will discuss goals of care. Family denies any known diagnosis of CHF. In the ED pt had mildly elevated BP of 144/61, vitals otherwise WNL. Labs were significant for H&H 7.2/22.4, initial troponin 44.2, BNP 1297, total protein 5.3, albumin 2.8. Labs otherwise WNL or at baseline. Tested negative for COVID, influenza type a and B. CXR showed diffuse sclerotic disease in the bones with no fracture seen, small to moderate right pleural effusion and bibasilar atelectasis/consolidation. Lumbar spine CT showed evidence of widespread osseous metastatic disease with likely chronic compression deformity of L1 vertebral body, and [id number] neuroforaminal encroachment at multiple levels. CT of pelvis found no acute pelvic fracture or dislocation, but did show interval development of extensive sclerotic metastatic tumor infiltration in the visualized lumbosacral spine, bilateral bony pelvis, and proximal femoral shafts. EKG demonstrated showed sinus rhythm with occasional PVCs with left axis deviation and RBBB. Pt was treated with furosemide 60 mg IV. Pt will be admitted to the hospital for treatment and further evaluation of new onset CHF. 88-year-old man treated for new onset congestive heart failure, unspecified. Patient was treated with IV Lasix 40 mg daily, monitored on telemetry. Patient and family requested to have discussion regarding palliative care and hospice. Patient's reported that she did not want any aggressive measures and will likely transition patient to hospice once home from short-term rehab. He has been having increased pain and noted to have Mets with history of prostate carcinoma. He will be sent to rehab with oxycodone and that can be continued from there. Patient's was given prescription for hospital bed and bedside commode. Plan is to discharge patient to short-term rehab. Anemia. No clear source of bleeding, required 1 unit of packed red blood cells with stabilization of H&H Back pain. Noted bony metastasis analgesics for pain History of prostate cancer has been following up at [facility] but patient and family would like transition to hospice/palliative care Time Attestation Discharge coordination time: Greater than 30 minutes Quality: Safe Use of Opioids Does Pt have an Active Cancer Diagnosis on the Problem List?: No Quality: Stroke Does the patient have a stroke diagnosis?: No Physical Exam Vital Signs: Vital Signs: Last Vital Signs Temp 97.9 F 01/13/24 11:36 Pulse 84 01/13/24 11:36 Resp 20 01/13/24 11:36 BP 128/60 01/13/24 11:36 Pulse Ox 95 01/13/24 11:36 O2 Del Method Nasal Cannula 01/13/24 11:36 O2 Flow Rate 2 01/13/24 11:36 BMI result Body Mass Index 21.3 Appearing in no acute distress, thin and frail head is normocephalic atraumatic eyes pupils are PERRLA sclera is anicteric mouth throat mucous membranes are intact and moist neck is supple no lymphadenopathy, no JVD noted lung sounds are clear to auscultation heart regular rate rhythm, clear S1, S2 positive bowel sounds, abdomen is soft, nontender neuro patient is alert x3, no focal deficits DS: Data Data Completed and Pending Labs on day of discharge: Laboratory Results - last 24 hr 01/13/24 05:54 WBC 4.6 L RBC 3.09 L Hgb 9.4 L Hct 27.6 L MCV 89.3 MCH 30.4 MCHC 34.1 RDW 16.9 H Plt Count 124 L MPV 10.4 Absolute Nucleated RBC 0.000 Nucleated RBC % (auto) 0.0 Sodium 133 L Potassium 3.5 Chloride 98 Carbon Dioxide 27 Anion Gap 12 BUN 38 H Creatinine 0.97 Estim Creat Clear Calc 41.4 Estimated GFR > 60 Random Glucose 102 Calcium 8.2 L Magnesium 2.0 Discharge Plan Discharge Anticipated Discharge Date/Time: 01/13/24 13:54 Patient Disposition: Xfer Inpatient Rehab Fac Discharge Diagnosis: Acute congestive heart failure unspecified. Referrals: Tyrel Sandoval [Outside] Prachi Altman MD [Primary Care Provider] - 1 Week Discharge Medications: New oxycodone 5 mg Tablet 5 mg PO Q4H PRN (Reason: Pain, Moderate(Pain Scale 4-6)) Qty: 30 0RF Rx Instructions: Partial Fill upon patient request. furosemide [Lasix] 20 mg tablet 20 mg PO QAM Qty: 14 0RF (DME) hospital bed Kit See Rx Instructions .Route Qty: 1 0RF Rx Instructions: As directed (DME) commode Kit See Rx Instructions .Route Qty: 1 0RF Rx Instructions: As directed Discharge Orders: Discharge Order (Routine); Ordered 01/13/24 Ordered By: Prema Juárez Diet: ensure Activity on Discharge: As tolerated Stand Alone Forms: Patient Portal Discharge page Care Plan Goals: Transfer to short-term rehab for physical therapy Health Concerns: Acute congestive heart failure. Unspecified Plan of Treatment: Follow-up with primary care provider as needed Take all medications as prescribed Assessment: See discharge summary
== END 2024-01-13 15:39 | DRG 292 ==
LOC: HO.ED 13:30 → HO.EDOVER 16:50 → HO.IMC 19:29
PROVIDERS: Admitting Provider Student in an Organized Health Care Education/Training Program; Emergency Provider Student in an Organized Health Care Education/Training Program; PCP Internal Medicine; Visit Provider Nurse Practitioner Acute Care
DX: I13.0 Hypertensive heart and chronic kidney disease with heart failure and stage 1 through stage 4 chronic kidney disease, or unspecified chronic kidney disease (principal); C78.00 Secondary malignant neoplasm of unspecified lung; C79.51 Secondary malignant neoplasm of bone; C61 Malignant neoplasm of prostate; G89.3 Neoplasm related pain (acute) (chronic); D63.0 Anemia in neoplastic disease; I50.9 Heart failure, unspecified; N18.30 Chronic kidney disease, stage 3 unspecified; Z66 Do not resuscitate; I25.10 Atherosclerotic heart disease of native coronary artery without angina pectoris; D69.6 Thrombocytopenia, unspecified; Z95.1 Presence of aortocoronary bypass graft; D63.1 Anemia in chronic kidney disease; Z20.822 Contact with and (suspected) exposure to COVID-19
CPT/HCPCS: 36415; 71045; 72132; 72192; 80048; 80053; 82272; 82947; 83735; 83880; 84484; 85025; 85027; 86850; 86900; 86901; 86923; 87502; 87635; 93005; 97163; 99285; J1940; J2270; P9016

== ENCOUNTER → 2024-01-10 12:13 | Outpatient (BNV) | payer MEDICARE, SELFPAY | PROVIDERS: Admitting Provider Student in an Organized Health Care Education/Training Program; Emergency Provider Student in an Organized Health Care Education/Training Program; PCP Internal Medicine; Visit Provider Internal Medicine Cardiovascular Disease | DX: I49.3 Ventricular premature depolarization (principal) | CPT/HCPCS: 93010 ==

== ENCOUNTER → 2024-01-10 16:30 | Outpatient (BNV) | payer MEDICARE, SELFPAY | PROVIDERS: Admitting Provider Student in an Organized Health Care Education/Training Program; Emergency Provider Student in an Organized Health Care Education/Training Program; PCP Internal Medicine; Visit Provider Nurse Practitioner Acute Care | DX: I50.9 Heart failure, unspecified (principal) | CPT/HCPCS: 99223; 99232; 99238; 99497 ==

== ENCOUNTER 2024-01-14 05:41 | Outpatient (REF) | payer MEDICARE, SELFPAY ==
[2024-01-14 05:43] LABS: MANUAL DIFF FLAG NO
[2024-01-14 05:49] LABS: Basophils Percent Auto 0.2 % (0-2); Eosinophils Absolute Auto 0.1 X10*3/uL (0.0-0.4); Eosinophils Percent Auto 1.7 % (0-4); Hematocrit 25.2 % (42.0-52.0); Hemoglobin 8.4 g/dl (14.0-18.0); Imm Gran Abs Auto 0.04 X10*3/uL (0.00-0.03); Lymphocytes Absolute Auto 0.8 X10*3/uL (1.2-4.9); Lymphocytes Percent Auto 17.9 % (20-40); Mean Corpuscular HGB Conc 33.3 g/dl (31.0-36.0); Mean Corpuscular Hemoglobin 29.9 pg (27.0-33.0); Mean Corpuscular Volume 89.7 fL (80.0-98.0); Mean Platelet Volume 9.2 fL (9.4-12.4); Monocytes Absolute Auto 0.5 X10*3/uL (0.1-1.2); Neutrophils Absolute Auto 2.9 x10*3/uL (2.0-8.3); Neutrophils Percent Auto 68.2 % (45-73); Red Blood Count 2.81 X10*6/uL (4.60-5.80); Red Cell Distribution Width 16.9 % (11.0-16.0); White Blood Count 4.2 X10*3/uL (4.8-10.8)
[2024-01-14 06:05] LABS: Alanine Aminotransferase 9 U/L (0-40); Albumin Level 2.7 g/dL (3.5-5.0); Alkaline Phosphatase 451 U/L (39-117); Anion Gap 13 (12-20); Aspartate Amino Transferase 51 U/L (5-37); Bilirubin Total 0.5 mg/dL (0.0-1.0); Blood Urea Nitrogen 38 mg/dL (9-16); Calcium 8.1 mg/dL (8.4-10.2); Carbon Dioxide 27 mmol/L (22-29); Chloride 97 mmol/L (96-108); Estimated Glomerular Filt Rate > 60; Glucose Random 82 mg/dL (60-115); Potassium 3.7 mmol/L (3.3-5.1); Sodium 133 mmol/L (135-145); Total Protein 4.8 g/dL (6.5-8.0)
[2024-01-14 06:14] LABS: Platelet Count 96 X10*3/uL (160-400)
== END 2024-01-14 05:42 | disposition home or self-care (01) ==
LOC: HO.MMNH1L 05:41
PROVIDERS: Visit Provider Family Medicine
DX: I50.9 Heart failure, unspecified (principal); C80.1 Malignant (primary) neoplasm, unspecified
CPT/HCPCS: 36415; 80053; 85025

== ENCOUNTER 2024-01-15 10:49 | Outpatient (REF) | payer MEDICARE, SELFPAY ==
[2024-01-15 10:57] LABS: MANUAL DIFF FLAG NO
[2024-01-15 11:11] LABS: Basophils Percent Auto 0.3 % (0-2); Eosinophils Absolute Auto 0.1 X10*3/uL (0.0-0.4); Eosinophils Percent Auto 1.5 % (0-4); Hematocrit 25.9 % (42.0-52.0); Hemoglobin 8.7 g/dl (14.0-18.0); Imm Gran Abs Auto 0.05 X10*3/uL (0.00-0.03); Imm Gran Pct Auto 1.3 % (0.0-0.4); Lymphocytes Absolute Auto 0.6 X10*3/uL (1.2-4.9); Lymphocytes Percent Auto 14.4 % (20-40); Mean Corpuscular HGB Conc 33.6 g/dl (31.0-36.0); Mean Corpuscular Hemoglobin 30.2 pg (27.0-33.0); Mean Corpuscular Volume 89.9 fL (80.0-98.0); Monocytes Absolute Auto 0.4 X10*3/uL (0.1-1.2); Monocytes Percent Auto 9.3 % (2-11); Neutrophils Absolute Auto 2.9 x10*3/uL (2.0-8.3); Neutrophils Percent Auto 73.2 % (45-73); Platelet Count 119 X10*3/uL (160-400); Red Blood Count 2.88 X10*6/uL (4.60-5.80); White Blood Count 3.9 X10*3/uL (4.8-10.8)
[2024-01-15 11:17] LABS: Anion Gap 14 (12-20); Blood Urea Nitrogen 35 mg/dL (9-16); Carbon Dioxide 27 mmol/L (22-29); Chloride 95 mmol/L (96-108); Estimated Glomerular Filt Rate > 60; Glucose Random 104 mg/dL (60-115); Potassium 3.7 mmol/L (3.3-5.1); Sodium 132 mmol/L (135-145)
[2024-01-15 11:22] LABS: Appearance Urine Cloudy; Color Urine Yellow; Glucose Urine UA Negative (Negative); Leukocyte Esterase Urine Negative (Negative); Nitrite Urine Negative (Negative); PH 5.5 (5.0-9.0); UMIC TRIGGER UA YES; Urine Blood Negative (Negative); Urine Ketones Negative (Negative); Urine Protein 30 (1+) mg/dL (Neg-Trace)
[2024-01-15 11:26] LABS: Bacteria Urine None Seen (None Seen); RBC Urine 0-2 /HPF (0-2); Squamous Epithelial Cell Urine 0-2 /HPF (0-2); WBC Urine 0-5 /HPF (0-5)
== END 2024-01-15 10:50 | disposition home or self-care (01) ==
LOC: HO.MMNH1L 10:49
PROVIDERS: Visit Provider Family Medicine
DX: M62.59 Muscle wasting and atrophy, not elsewhere classified, multiple sites (principal); R27.8 Other lack of coordination; N18.9 Chronic kidney disease, unspecified
CPT/HCPCS: 36415; 80048; 81001; 85025; 87040; 87086